=== PATIENT | female | born 1965 | race Caucasian/White ===

== ENCOUNTER 2023-04-21 20:16 | Emergency (ER) | payer OTHER, SELFPAY ==
[2023-04-21 20:18] VITALS: BP 120/78; PULSE 135; RESP 18; TEMP 39.1; O2SAT 92; BMI 23.7
[2023-04-21 20:36] VITALS: BP 137/73; PULSE 81; RESP 18; TEMP 36.8; O2SAT 96; BMI 25.8
== END 2023-04-21 22:40 | disposition left against medical advice (07) ==
LOC: HO.ED 22:31
PROVIDERS: Emergency Provider Emergency Medicine; PCP Student in an Organized Health Care Education/Training Program
DX: R10.9 Unspecified abdominal pain (principal); R50.9 Fever, unspecified
CPT/HCPCS: 99281

== ENCOUNTER 2024-08-27 11:24 | Outpatient (REF) | payer OTHER, SELFPAY ==
--- NOTE | ~2024-08-27 | MM_ITS ---
EXAMINATION: Dual-Energy X-ray Absorptiometry - Bone Density Study HISTORY: Estrogen deficiency TECHNIQUE: Funny [employer] Die Dual energy absorptiometry (DEXA) of the lumbar spine, total left hip, and femoral neck was performed. COMPARISON: There are no prior studies for comparison. FINDINGS: The bone mineral density of the lumbar spine is 1.419 with a T-score of 1.8, and a Z-score of 2.4. The bone mineral density of the left total hip is 0.876 with a T-score of -1.0, and a Z-score of -0.6. The bone mineral density of the left femoral neck is 0.848 with a T-score of -1.4, and a Z-score of -0.5. FRACTURE RISK: The FRAX index suggests a risk of major osteoporotic fracture of 7.3%, and of hip fracture 0.6%. MM/XR DEXA axial skeleton IMPRESSION: Based on bone mineral density, and according to World Health Organization (WHO) criteria, the diagnosis is consistent with osteopenia. All bone density values are in grams per centimeter squared. At this facility, the least significant change in BMD with 95% confidence is 0.022 at the lumbar spine, 0.027 at the hip, and 0.023 at the distal 1/3 radius. Electronically signed by: Jean Benton MD 08/28/2024 09:03 AM [facility] [place]
== END 2024-08-27 11:25 | disposition home or self-care (01) ==
LOC: HO.MAMMO 11:24
PROVIDERS: Visit Provider Student in an Organized Health Care Education/Training Program
DX: M85.89 Other specified disorders of bone density and structure, multiple sites (principal)
CPT/HCPCS: 77080

== ENCOUNTER → 2024-08-27 11:30 | Outpatient (BNV) | payer OTHER, SELFPAY | PROVIDERS: Visit Provider Radiology Diagnostic Radiology | DX: E28.39 Other primary ovarian failure (principal) | CPT/HCPCS: 77080 ==

== ENCOUNTER 2024-12-12 14:14 | Outpatient (REF) | payer BC, SELFPAY ==
[2024-12-12 15:42] LABS: MANUAL DIFF FLAG NO
[2024-12-12 15:52] LABS: Basophils Absolute Auto 0.1 X10*3/uL (0.0-0.2); Basophils Percent Auto 0.9 % (0-2); Eosinophils Absolute Auto 0.1 X10*3/uL (0.0-0.4); Eosinophils Percent Auto 1.7 % (0-4); Hematocrit 40.3 % (37.0-47.0); Hemoglobin 13.4 g/dl (12.0-16.0); Imm Gran Abs Auto 0.02 X10*3/uL (0.00-0.03); Imm Gran Pct Auto 0.3 % (0.0-0.4); Lymphocytes Absolute Auto 2.6 X10*3/uL (1.2-4.9); Lymphocytes Percent Auto 33.6 % (20-40); Mean Corpuscular HGB Conc 33.3 g/dl (31.0-35.0); Mean Corpuscular Hemoglobin 30.5 pg (27.0-33.0); Mean Corpuscular Volume 91.8 fL (80.0-98.0); Mean Platelet Volume 9.3 fL (9.4-12.3); Monocytes Absolute Auto 0.8 X10*3/uL (0.1-1.2); Monocytes Percent Auto 10.1 % (2-11); Neutrophils Absolute Auto 4.1 x10*3/uL (2.0-8.3); Neutrophils Percent Auto 53.4 % (45-73); Platelet Count 367 X10*3/uL (160-400); Red Blood Count 4.39 X10*6/uL (4.20-5.50); Red Cell Distribution Width 13.2 % (11.0-16.0); White Blood Count 7.7 X10*3/uL (4.8-10.8)
[2024-12-12 16:27] LABS: Anion Gap 12 (12-20); Blood Urea Nitrogen 17 mg/dL (9-16); Calcium 10.5 mg/dL (8.4-10.2); Carbon Dioxide 27 mmol/L (22-29); Chloride 104 mmol/L (96-108); Estimated Glomerular Filt Rate > 60; Glucose Random 100 mg/dL (60-115); Potassium 3.8 mmol/L (3.3-5.1); Sodium 139 mmol/L (135-145)
[2024-12-12 17:00] LABS: Erythrocyte Sedimentation Rate 3 MM/HR (0-20)
[2024-12-24 06:18] LABS: Class Alternaria alternata 0; Class Aspergillus fumigatus 0; Class Bermuda Grass 0; Class Birch 0; Class Cat Dander 0/1; Class Cladosporium herbarum 0; Class Cockroach 0; Class Common Ragweed 0; Class Cottonwood 0; Class Derm. pterony 3; Class Dermatophagoides farinae 3; Class Dog Dander 0; Class Elm 0; Class Maple Box Elder 0; Class Mountain Cedar 0; Class Mouse Urine Protein 0; Class Mugwort 0; Class Oak 0; Class Penicillium crysogenum 0; Class Rough Pigweed 0; Class Sheep Sorrel 0; Class Sycamore 0; Class Timothy Grass 0; Class Walnut Tree 0; Class White Ash 0; Class White Mulberry 0; D001 IgE D pteronyssinus 8.54 kU/L; D002 - IgE D farinae 6.83 kU/L; E001 - IgE Cat Dander 0.31 kU/L; E005 - IgE Dog Dander <0.10 kU/L; E072-IgE Mouse Urine <0.10 kU/L; G002 IgE Bermuda Grass <0.10 kU/L; G006 - IgE Timothy Grass <0.10 kU/L; I006-IgE Cockroach, German <0.10 kU/L; Immunoglobulin E 40 kU/L (<OR=114); M001 IgE Penicillium chrysogen <0.10 kU/L; M002 - IgE Cladosporium herbar <0.10 kU/L; M003 - IgE Aspergillus fumigat <0.10 kU/L; M006 - IgE Alternaria alternat <0.10 kU/L; T001 IgE Maple/Box Elder <0.10 kU/L; T003 IgE Common Silver Birch <0.10 kU/L; T006 - IgE Cedar, Mountain <0.10 kU/L; T007 - IgE Oak, White <0.10 kU/L; T008 IgE Elm, American <0.10 kU/L; T010 - IgE Walnut <0.10 kU/L; T011 - IgE Maple Leaf Sycamore <0.10 kU/L; T014 - IgE Cottonwood <0.10 kU/L; T015 - IgE Ash, White <0.10 kU/L; T070 - IgE White Mulberry <0.10 kU/L; W001 - IgE Ragweed, Short <0.10 kU/L; W006 - IgE Mugwort <0.10 kU/L; W014 IgE Pigweed, Common <0.10 kU/L; W018 IgE Sheep Sorrel <0.10 kU/L
[2024-12-27 08:23] LABS: Rast Allergen SEE COMMENTS
== END 2024-12-12 14:15 | disposition home or self-care (01) ==
LOC: HO.LAB 14:14
PROVIDERS: PCP Student in an Organized Health Care Education/Training Program; Referring Provider Student in an Organized Health Care Education/Training Program; Visit Provider Hospitalist
DX: J30.9 Allergic rhinitis, unspecified (principal); R91.1 Solitary pulmonary nodule; T78.40XA Allergy, unspecified, initial encounter
CPT/HCPCS: 36415; 80048; 82785; 85025; 85652; 86003

== ENCOUNTER 2024-12-12 14:14 | Outpatient (AMB) | payer BC, SELFPAY ==
[2024-12-12 14:18] VITALS: BP 108/70; PULSE 67; O2SAT 95; BMI 28.5
--- NOTE | 2024-12-12 14:18 | A.OFFVIS_ITS ---
Vital Signs 12/12/24 14:18 Height 5 ft 10 in Weight 198 lb 6.656 oz BMI 28.5 BP 108/70 Blood Pressure Location Lt brachial Position Sitting Pulse 67 Pulse Source Pulse Oximeter Pulse Oximetry (%) 95 Oxygen Delivery Method Room Air Intake Visit Reasons: asthma Dirt Bike Racer Required: No Accompanied by: Self / Same As Patient Allergies aspirin Allergy (Intermediate, Verified 12/12/24 14:21) Facial Swelling NSAIDS (Non-Steroidal Anti-Inflamma Allergy (Intermediate, Verified 12/12/24 14:21) Facial Swelling HPI Comments Details: The patient is here for pulmonary evaluation. The patient is a 59 year woman with known history of lifelong allergies asthma chronic rhinitis presenting with worsening respiratory symptoms. Apparently as a child she started getting allergy shots at the age of 8. She had a lot of significant environmental allergies at that time. She was living in [place]. Later in her adolescent years she had multiple exacerbation with her asthma requiring hospitalizations and aminophylline along with steroids. Her asthma did improve and then she moved to the [facility]. Here she is now living in the [facility]. She has had increasing allergy symptoms. She had in her rescue inhaler and also had fluticasone for the nose. She is not getting as much relief. Typically she will do better with QNASL although it does not seem to be covered any longer. The patient was switched over to Symbicort and this appears to be more effective for her. She has not required any prednisone recently. She still uses Symbicort regularly since she does have regular symptoms. She has a hard time exercising because of the breathing. She also has significant nasal congestion. The nasal congestion has also resulted in worsening daytime drowsiness and snoring. Her Starbuck score is elevated elevated 24. Her bed partner does complain of her significant apneic episodes and he is concerned that she is going to have a bad outcome. The patient will need to have a sleep study. She has never had a sleep study this point. Therefore, will go ahead and continue her on the Symbicort and will add additional therapies for her nasal congestion. The patient should undergo additional blood work including allergy testing. She will also have formal pulmonary function studies and have her undergo a home sleep study and then she will follow-up after those tests are completed. [facility] Medical History (Updated 12/12/24 @ 21:46 by Shola Mcdowell MD) Chronic allergic rhinitis Allergy Asthma Social History (Updated 12/12/24 @ 14:27 by Loida Cutler CMA) Alcohol intake: current Alcohol intake frequency: holidays/special occasions only Patient Tobacco Use Status: Former Tobacco user Review of Systems Const Reports daytime sleepiness, Denies fatigue, Denies fever(s), Reports snoring and Reports stops breathing during sleep Eyes Reports no additional complaints ENT Reports nasal congestion and Reports nasal discharge Card Denies chest pain Resp Reports cough, Reports snoring and Reports wheezing GI Reports no additional complaints Musc Reports no additional complaints Skin/Breast Denies rash Neuro Reports no additional complaints Endo Denies fatigue Bola/Lymph Reports no additional complaints Aller/Immun Reports wheezing Physical Exam Vital Signs: Last Vital Signs Pulse 67 12/12/24 14:18 BP 108/70 12/12/24 14:18 Pulse Ox 95 12/12/24 14:18 Oxygen Delivery Method Room Air 12/12/24 14:18 BMI result Body Mass Index 28.5 Const General: comfortable HEENT Head: Yes normocephalic Neck Neck: Yes supple Chest Chest palpation & inspection: normal inspection of the chest Resp Effort & Inspection: normal respiratory effort Auscultation: clear to auscultation bilaterally Cardio Heart sounds: S1 normal heart sound present and S2 normal heart sound present GI Palpation (GI): Soft to palpation Skin General skin exam: no rashes or lesions noted Extrem General: Yes no clubbing, cyanosis or edema Assessment & Plan Assessment & Plan (1) Chronic allergic rhinitis: Code(s): J30.9 - Allergic rhinitis, unspecified Category: Medical (2) Allergy: Code(s): T78.40XA - Allergy, unspecified, initial encounter Category: Medical Qualifiers: Encounter type: initial encounter Qualified Code(s): T78.40XA - Allergy, unspecified, initial encounter (3) Asthma: Code(s): J45.909 - Unspecified asthma, uncomplicated Category: Medical Qualifiers: Asthma severity: moderate Asthma persistence: persistent Asthma complication type: uncomplicated Qualified Code(s): J45.40 - Moderate persistent asthma, uncomplicated (4) LIV (obstructive sleep apnea): Code(s): G47.33 - Obstructive sleep apnea (adult) (pediatric) Category: Medical Plan Continue Symbicort JAVON as needed continue Fluticasone nasal spray Add Astelin nasal spray Neti bottle nasal rinse PM PFTs Bloodwork/allergy testing Home PSG F/U 2-3 months Orders: Orders Erythrocyte Sedimentation Rate Today J30.9 - Allergic rhinitis, unspecified, J45.909 - Unspecified asthma, uncomplicated, T78.40XA - Allergy, unspecified, initial encounter Complete Blood Count Auto Diff Today J30.9 - Allergic rhinitis, unspecified, J45.909 - Unspecified asthma, uncomplicated, T78.40XA - Allergy, unspecified, initial encounter Basic Metabolic Panel Today J30.9 - Allergic rhinitis, unspecified, J45.909 - Unspecified asthma, uncomplicated, T78.40XA - Allergy, unspecified, initial encounter Resp Allergy Profile Region I Today J30.9 - Allergic rhinitis, unspecified, J45.909 - Unspecified asthma, uncomplicated, R91.1 - Solitary pulmonary nodule, T78.40XA - Allergy, unspecified, initial encounter Immunoglobulin E Today J30.9 - Allergic rhinitis, unspecified, J45.909 - Unspecified asthma, uncomplicated, T78.40XA - Allergy, unspecified, initial encounter RT home sleep study Today G47.33 - Obstructive sleep apnea (adult) (pediatric) PFT pulmonary function test Today J45.40 - Moderate persistent asthma, uncomp licated Medications: New azelastine administer into each nostril 2 sprays intranasal BID 30 days 30 mL 6RF Coding Level of Care Code New Pt Level 4 (03136) Diagnoses Chronic allergic rhinitis J30.9 Allergy, initial encounter T78.40XA Encounter type: initial encounter Moderate persistent asthma without complication J45.40 Asthma severity: moderate Asthma persistence: persistent Asthma complication type: uncomplicated LIV (obstructive sleep apnea) G47.33 Time Spent (min) 45
--- OUTSIDE RECORDS SUMMARY | 2024-12-12 16:26 | XMS_ITS | Data Portability ---
Author Organization [facility], Main Office Address [address] [facility] [address] [place] [id number] Care Team Providers Care Life Care Planner Name Role Phone ANGIE GUADALUPE Primary Care Provider TL CHOWDHURY Phys. Med. & Rehab Assessment Encounter Date Assessment Date Assessment LastModified by Organization Details LastModified Time 09/05/2024 09/05/2024 Discussed with patient the signs/symptom s warranted for a return to office visit and/or an ER visit. Patient understood and agreed with the plan. [email or web address] Not available 09/05/2024 09:07:13 Plan of Treatment Reminders Order Date Submit Date Provider Last Modified By Organization Details Last Modified Time Details Appointments PE EST 2024 03:00P Alisia GUADALUPE MD Not available Not available Not available Lab rf (rheum atoid factor ), serum 2024 025 KAROLINA [facility] (Centralized Electronic Ordering - All Locations), Patient Can Go To The Location Of Their Choice, 09/06/2024 20:06:19 TAWANA (antin uclear antibo dies) screen , serum 2024 025 KAROLINA [facility] (Centralized Electronic Ordering - All Locations), Patient Can Go To The Location Of Their Choice, 09/06/2024 20:06:22 ccp (cycli c citrul linate d peptid e) iga+ig g, serum 2024 025 KAROLINA [facility] (Centralized Electronic Ordering - All Locations), Patient Can Go To The Location Of Their Choice, [id number] 09/06/2024 20:06:21 vitami n D, 25-hyd melissa, total, serum 2024 025 KAROLINA [facility] (Centralized Electronic Ordering - All Locations), Patient Can Go To The Location Of Their Choice, 09/06/2024 20:06:20 HbA1c (hemog lobin A1c), blood 2023 024 KAROLINA [facility] (Centralized Electronic Ordering - All Locations), Patient Can Go To The Location Of Their Choice, 10/03/2024 08:07:59 lipid panel, serum 2023 024 [email or web address] [facility], [address], [place], [address], 10/01/2024 09:47:41 BMP, serum or plasma 2023 024 KAROLINA [facility], [address], [place], [address], 10/03/2024 08:07:58 CBC w/ auto diff 2023 024 KAROLINA [facility], [address], [place], [address], 10/03/2024 08:07:57 TSH, ultra- sensit janie, serum 2023 024 [email or web address] [facility], [address], [place], [address], 10/01/2024 09:47:41 urinal ysis comple te, reflex cultur e 2023 024 KAROLINA [facility] (Centralized Electronic Ordering - All Locations), Patient Can Go To The Location Of Their Choice, 02/02/2024 12:07:08 CBC w/ auto diff 2023 024 KAROLINA [facility], [address], [place], [address], 02/02/2024 12:07:07 TSH, ultra- sensit janie, serum 2023 024 KAROLINA [facility], [address], [place], [address], 02/02/2024 12:07:12 HIV 1 + 2, meanin gful use set 2023 024 KAROLINA [facility] (Centralized Electronic Ordering - All Locations), Patient Can Go To The Location Of Their Choice, [id number] 02/02/2024 12:07:11 BMP, serum or plasma 2023 024 KAROLINA [facility] (Centralized Electronic Ordering - All Locations), Patient Can Go To The Location Of Their Choice, [id number] 02/02/2024 12:07:09 ALT (dianna carreon), serum or plasma 2023 024 KAROLINA [facility] (Centralized Electronic Ordering - All Locations), Patient Can Go To The Location Of Their Choice, [id number] 02/02/2024 12:07:13 lipid panel, serum 2023 024 KAROLINA [facility] (Centralized Electronic Ordering - All Locations), Patient Can Go To The Location Of Their Choice, [id number] 02/02/2024 12:07:10 HbA1c (hemog lobin A1c), blood 2023 024 KAROLINA [facility] (Centralized Electronic Ordering - All Locations), Patient Can Go To The Location Of Their Choice, [id number] 02/02/2024 12:07:11 Hepati tis C IgG Ab, qual, serum 2023 024 KAROLINA [facility] (Centralized Electronic Ordering - All Locations), Patient Can Go To The Location Of Their Choice, [id number] 02/02/2024 12:07:10 hepati tis C virus Ab, serum 2022 023 [facility], [address], [address], 11/04/2022 09:13:36 Referral pulmon ologis t referr al - hx of asthma . pt reques ts to see pulmon ologis t to follow asthma 2024 025 JUANITO [facility], [address] [place], [address], 09/05/2024 14:40:36 gyneco logist referr al 2023 024 Not available 07/01/2024 11:33:10 urolog ist referr al 2023 024 [email or web address] [facility], [address] [facility], [place], [address], 07/25/2024 14:24:37 gyneco logist referr al 2023 024 [email or web address] Not available 07/25/2024 14:24:37 dermat ologis t referr al 2023 024 dionne Coto MD, [address] [facility] , [place], [address], 07/25/2024 14:24:38 physic al medici ne and rehabi litati on referr al 2022 023 [email or web address] Tl Chowdhury DO, [address] [facility], [address], [place], [address], 11/21/2022 11:03:57 gyneco logist referr al 2022 023 Not available 05/04/2023 10:21:05 Procedures colono scopy screen ing (PROC) 2023 024 [email or web address] [facility], [address], [place], [address], 02/22/2024 08:30:46 colono scopy screen ing (PROC) 2022 023 [facility], [address], [place], [address], 01/05/2023 11:11:07 Surgeries None record ed. Imaging bone densit y 2023 024 KAROLINA Not available 08/28/2024 09:08:44 XR, thorac ic spine, 2 view 2023 024 KAROLINA Not available 01/23/2024 11:39:27 MAMMO, diagno stic, unilat eral - left breast RUQ at 9 oclock 2023 024 [email or web address] Not available 02/06/2024 08:59:18 US, breast , unilat eral - left breast RUQ at 9 oclock 2023 024 matilda [facility], [address], [address], [place], [address], 01/25/2024 08:47:42 XR, ribs, unilat eral, w/ PA chest - RIGHT SIDE 2022 023 [place] [facility], [address], [address], [place], [address], 05/02/2023 05:34:20 MAMMO, screen ing, bilate ral 2022 023 Not available 05/04/2023 10:21:18 Medication Orders Symbic ort 160 mcg-4. 5 mcg/ac tuatio n HFA aeroso l inhale r 2024 025 [id number], [address] [place], [address], 09/05/2024 09:19:32 predni sone 20 mg tablet 2024 025 [id number], [address] [place], [address], 09/05/2024 09:19:32 albute rol sulfat e HFA 90 mcg/ac tuatio n aeroso l inhale r 2023 024 [id number], [address] [place], [address], 07/01/2024 11:33:11 gerson ukast 10 mg tablet 2023 024 [id number], [address] [place], [address], 07/01/2024 11:33:11 Floven t HFA 220 mcg/ac tuatio n aeroso l inhale r 2023 024 [id number], [address] [place], [address], 07/01/2024 11:33:11 amlodi pine 5 mg tablet 2023 024 [id number], [address] [place], [address], 07/01/2024 11:23:28 gabape ntin 300 mg capsul e 2022 023 juan [id number], [address] [place], [address], 01/23/2024 09:46:50 Patient TargetsNo targets recorded. Patient Instructions Encounter Date Encounter Id Patient Instructions Last Modified By Organization Details Last Modified Time 01/23/2024 [id number] alergias: instrucciones de cuidado - [allergies: care instructions] Not available 01/23/2024 10:10:02 aprenda sobre el alivio del dolor de espalda - [learning about relief for back pain] Not available 01/23/2024 10:10:02 cuidado de la espalda y prevenci? ? ?n de lesiones: instrucciones de cuidado - [back care and preventing injuries: care instructions] Not available 01/23/2024 10:10:02 C? ? ?MO volver a la normalidad despu? ? ?s de un dolor en la parte baja de la espalda: instrucciones de cuidado - [getting back to normal after low back pain: care instructions] Not available 01/23/2024 10:10:02 parte superior d e la espalda saludable: ejercicios - [healthy upper back: exercises] Not available 01/23/2024 10:10:44 aprenda sobre lo s trastornos del estado de ? ? ?patience - [learning about mood disorders] Not available 01/23/2024 10:10:03 prueba de vih: instrucciones de cuidado - [HIV testing: care instructions] Not available 01/23/2024 10:13:21 colesterol alto: instrucciones de cuidado - [high cholesterol: care instructions] Not available 01/23/2024 10:10:01 prediabetes: instrucciones de cuidado - [prediabetes: care instructions] Not available 01/23/2024 10:10:02 lesiones cut? ? ?neas: instrucciones de cuidado - [skin lesions: care instructions] Not available 01/23/2024 10:10:02 07/01/2024 [id number] low back pain: exercises Not available 07/01/2024 11:33:10 Reason for Referral Metal Or Wood Blocker Referral for Sc reening for malignant neoplasm of cervix Referring Physician: Angie Guadalupe [facility] Kishore, Encounter Date: 11/04/2022 Physical Medicine And Rehabi litation Referral for Low back pain Referring Physician: Angie Guadalupe [facility] Kish[facility], Encounter Date: 11/04/2022 Metal Or Wood Blocker Referral for Sc reening for malignant neoplasm of cervix Referring Physician: Family Kishore Duenas, Encounter Date: 01/23/2024 Urologist Referral for Histo ry of urinary tract infection Referring Physician: Angie Guadalupe [facility]ish[facility], Encounter Date: 01/23/2024 Plastic Surgery Nurse Referral for S kin lesion Referring Physician: Family Kishore Duenas, Encounter Date: 01/23/2024 Metal Or Wood Blocker Referral for Sc reening for malignant neoplasm of cervix Referring Physician: Angie Guadalupe, [facility], Encounter Date: 07/01/2024 Packaging Line Attendant Referral for E xacerbation of mild persistent asthma hx of asthma. pt requests to see drafter heating and ventilating to follow asthma Referring Physician: Swathi Ferrer, [facility], Encounter Date: 09/05/2024 Results Created Date Observation Date Name Description Value Unit Range Abnormal Flag Note LastModifiedBy Organization Detail LastModifiedTime 01/30/20 24 01/31/2024 CBC WITH DIFFE RENTI AL/PL ATELE T WBC 6.2 x10e3 /uL 3.4-10 .8 Not Available [facility] ([facility]) [address] [facility], [place], [address], 02/02/2024 12:07:07 01/30/20 24 01/31/2024 CBC WITH DIFFE RENTI AL/PL ATELE T RBC 4.33 x10e6 /uL 3.77-5 .28 Not Available [facility] ([facility]) [address] [place], [address], 02/02/2024 12:07:07 01/30/20 24 01/31/2024 CBC WITH DIFFE RENTI AL/PL ATELE T hemoglobin 13.1 g/dL 11.1-1 5.9 Not Available [facility] ([facility]) [address] [facility], [place], [address], 02/02/2024 12:07:07 01/30/20 24 01/31/2024 CBC WITH DIFFE RENTI AL/PL ATELE T hematocrit 41.2 % 34.0-4 6.6 Not Available [facility] ([facility]) [address] [place], [address], 02/02/2024 12:07:07 01/30/20 24 01/31/2024 CBC WITH DIFFE RENTI AL/PL ATELE T MCV 95 fL 79-97 Not Available [facility] ([facility]) [address] [facility], [place], [address], 02/02/2024 12:07:07 01/30/20 24 01/31/2024 CBC WITH DIFFE RENTI AL/PL ATELE T MCH 30.3 pg 26.6-3 3.0 Not Available [facility] ([facility]) [address] [facility], [place], [address], 02/02/2024 12:07:07 01/30/20 24 01/31/2024 CBC WITH DIFFE RENTI AL/PL ATELE T MCHC 31.8 g/dL 31.5-3 5.7 Not Available [facility] ([facility]) [address] [facility], [place], [address], 02/02/2024 12:07:07 01/30/20 24 01/31/2024 CBC WITH DIFFE RENTI AL/PL ATELE T RDW 13.9 % 11.7-1 5.4 Not Available [facility] ([facility]) [address] [facility], [place], [address], 02/02/2024 12:07:07 01/30/20 24 01/31/2024 CBC WITH DIFFE RENTI AL/PL ATELE T platelets 392 x10e3 /uL 150-45 0 Not Available [facility] ([facility]) [address] [place], [address], 02/02/2024 12:07:07 01/30/20 24 01/31/2024 CBC WITH DIFFE RENTI AL/PL ATELE T neutrophils 50 % not estab. Not Available [facility] ([facility]) [address] [place], [address], 02/02/2024 12:07:07 01/30/20 24 01/31/2024 CBC WITH DIFFE RENTI AL/PL ATELE T lymphs 35 % not estab. Not Available [facility] ([facility]) [address] [place], [address], 02/02/2024 12:07:07 01/30/20 24 01/31/2024 CBC WITH DIFFE RENTI AL/PL ATELE T monocytes 10 % not estab. Not Available [facility] ([facility]) [address] [facility], [place], [address], 02/02/2024 12:07:07 01/30/20 24 01/31/2024 CBC WITH DIFFE RENTI AL/PL ATELE T eos 3 % not estab. Not Available [facility] ([facility]) [address] [facility], [place], [address], 02/02/2024 12:07:07 01/30/20 24 01/31/2024 CBC WITH DIFFE RENTI AL/PL ATELE T basos 1 % not estab. Not Available [facility] ([facility]) [address] [facility], [place], [address], 02/02/2024 12:07:07 01/30/20 24 01/31/2024 CBC WITH DIFFE RENTI AL/PL ATELE T immature cells SECRETARY TO [employer]ERS Not Available [facility] ([facility]) [address] [place], [address], 02/02/2024 12:07:07 01/30/20 24 01/31/2024 CBC WITH DIFFE RENTI AL/PL ATELE T neutrophils (absolute) 3.2 x10e3 /uL 1.4-7. 0 Not Available [facility] ([facility]) [address] [place], [address], 02/02/2024 12:07:07 01/30/20 24 01/31/2024 CBC WITH DIFFE RENTI AL/PL ATELE T lymphs (absolute) 2.2 x10e3 /uL 0.7-3. 1 Not Available [facility] ([facility]) [address] [place], [address], 02/02/2024 12:07:07 01/30/20 24 01/31/2024 CBC WITH DIFFE RENTI AL/PL ATELE T monocytes(ab solute) 0.6 x10e3 /uL 0.1-0. 9 Not Available [facility] ([facility]) [address] [facility], [place], [address], 02/02/2024 12:07:07 01/30/20 24 01/31/2024 CBC WITH DIFFE RENTI AL/PL ATELE T eos (absolute) 0.2 x10e3 /uL 0.0-0. 4 Not Available [facility] ([facility]) [address] [facility], [place], [address], 02/02/2024 12:07:07 01/30/20 24 01/31/2024 CBC WITH DIFFE RENTI AL/PL ATELE T baso (absolute) 0.1 x10e3 /uL 0.0-0. 2 Not Available [facility] ([facility]) [address] [facility], [place], [address], 02/02/2024 12:07:07 01/30/20 24 01/31/2024 CBC WITH DIFFE RENTI AL/PL ATELE T immature granulocytes 1 % not estab. Not Available [facility] ([facility]) [address] [facility], [place], [address], 02/02/2024 12:07:07 01/30/20 24 01/31/2024 CBC WITH DIFFE RENTI AL/PL ATELE T immature grans (abs) 0.1 x10e3 /uL 0.0-0. 1 Not Available [facility] ([facility]) [address] [place], [address], 02/02/2024 12:07:07 01/30/20 24 01/31/2024 CBC WITH DIFFE RENTI AL/PL ATELE T NRBC SECRETARY TO [employer]ERS Not Available [facility] ([facility]) [address] [place], [address], 02/02/2024 12:07:07 01/30/20 24 01/31/2024 CBC WITH RONIE CHEMO AL/KARRIE Leach hematology comments: SECRETARY TO [employer]ISS[employer]ERS Not Available [facility] ([facility]) [address] [facility], [place], [address], 02/02/2024 12:07:07 01/30/20 24 01/31/2024 UA/M W/RFL X CULTU RE ROUTI NE specific gravity 1.023 1.005- 1.030 Not Available [facility] ([facility]) [address] [facility], [place], [address], 02/02/2024 12:07:08 01/30/20 24 01/31/2024 UA/M W/RFL X CULTU REDARYN NE pH 7.5 5.0-7. 5 Not Available [facility] ([facility]) [address] [facility], [place], [address], 02/02/2024 12:07:08 01/30/20 24 01/31/2024 UA/M W/RFL X CULTU REDARYN NE urine-color Yellow yellow Not Available [facility] ([facility]) [address] [facility], [place], [address], 02/02/2024 12:07:08 01/30/20 24 01/31/2024 UA/M W/RFL X CULTTati REDARYN NE appearance Clear clear Not Available [facility] ([facility]) [address] [facility], [place], [address], 02/02/2024 12:07:08 01/30/20 24 01/31/2024 UA/M W/RFL X CULTU REDARYN NE WBC esterase Negati ve negati ve Not Available [facility] ([facility]) [address] [facility], [place], [address], 02/02/2024 12:07:08 01/30/20 24 01/31/2024 UA/M W/RFL X CULTU RE, ROUTI NE protein Trace negati ve/tra ce Not Available [facility] ([facility]) [address] [place], [address], 02/02/2024 12:07:08 01/30/20 24 01/31/2024 UA/M W/RFL X CULTU RE, ROUTI NE glucose Negati ve negati ve Not Available [facility] ([facility]) [address] [place], [address], 02/02/2024 12:07:08 01/30/20 24 01/31/2024 UA/M W/RFL X CULTU RE, ROUTI NE ketones Negati ve negati ve Not Available [facility] ([facility]) [address] [place], [address], 02/02/2024 12:07:08 01/30/20 24 01/31/2024 UA/M W/RFL X CULTU RE, ROUTI NE occult blood Negati ve negati ve Not Available [facility] ([facility]) [address] [place], [address], 02/02/2024 12:07:08 01/30/20 24 01/31/2024 UA/M W/RFL X CULTU RE, ROUTI NE bilirubin Negati ve negati ve Not Available [facility] ([facility]) [address] [place], [address], 02/02/2024 12:07:08 01/30/20 24 01/31/2024 UA/M W/RFL X CULTU RE, ROUTI NE urobilinogen ,semi-qn 0.2 mg/dL 0.2-1. 0 Not Available [facility] ([facility]) [address] [place], [address], 02/02/2024 12:07:08 01/30/20 24 01/31/2024 UA/M W/RFL X CULTU RE, ROUTI NE nitrite, urine Positi ve negati ve abnormal Not Available [facility] ([facility]) [address] [facility], [place], [address], 02/02/2024 12:07:08 01/30/20 24 01/31/2024 UA/M W/RFL X CULTU RE, ROUTI NE microscopic examination See below: Porsche pulliam was indic ated and was perfo rmed. Not Available [facility] ([facility]) [address] [facility], [place], [address], 02/02/2024 12:07:08 01/30/20 24 01/31/2024 UA/M W/RFL X CULTU RE, ROUTI NE WBC 0-5 /hpf 0 - 5 Not Available [facility] ([facility]) [address] [facility], [place], [address], 02/02/2024 12:07:08 01/30/20 24 01/31/2024 UA/M W/RFL X CULTU RE, ROUTI NE RBC 0-2 /hpf 0 - 2 Not Available [facility] ([facility]) [address] [facility], [place], [address], 02/02/2024 12:07:08 01/30/20 24 01/31/2024 UA/M W/RFL X CULTU RE, ROUTI NE epithelial cells (non renal) 0-10 /hpf 0 - 10 Not Available [facility] ([facility]) [address] [facility], [place], [address], 02/02/2024 12:07:08 01/30/20 24 01/31/2024 UA/M W/RFL X CULTU RE, ROUTI NE epithelial cells (renal) SECRETARY TO [employer] COMMISS[employer]ERS Not Available [facility] ([facility]) [address] [place], [address], 02/02/2024 12:07:08 01/30/20 24 01/31/2024 UA/M W/RFL X CULTU RE, ROUTI NE casts None seen /lpf none seen Not Available [facility] ([facility]) [address] [facility], [place], [address], 02/02/2024 12:07:08 01/30/20 24 01/31/2024 UA/M W/RFL X CULTU RE, ROUTI NE cast type SECRETARY TO [employer]ERS Not Available [facility] ([facility]) [address] [facility], [place], [address], 02/02/2024 12:07:08 01/30/20 24 01/31/2024 UA/M W/RFL X CULTU RE, ROUTI NE crystals SECRETARY TO [employer] COMMISSIONERS Not Available [facility] ([facility]) [address] [facility], [place], [address], 02/02/2024 12:07:08 01/30/20 24 01/31/2024 UA/M W/RFL X CULTU RE, ROUTI NE crystal type SECRETARY TO BOARD OF COMMISSIONERS Not Available [facility]) [address] [facility], [place], [address], 02/02/2024 12:07:08 01/30/20 24 01/31/2024 UA/M W/RFL X CULTU RE, ROUTI NE mucus threads SECRETARY TO [employer] COMMISSIONERS Not Available [facility] ([facility]) [address] [facility], [place], [address], 02/02/2024 12:07:08 01/30/20 24 01/31/2024 UA/M W/RFL X CULTU RE, ROUTI NE bacteria Few none seen/f ew Not Available [facility] ([facility]) [address] [facility], [place], [address], 02/02/2024 12:07:08 01/30/20 24 01/31/2024 UA/M W/RFL X CULTU RE, ROUTI NE yeast SECRETARY TO [employer]ARD [employer] COMMISSIONERS Not Available [facility] ([facility]) [address] [facility], [place], [address], 02/02/2024 12:07:08 01/30/20 24 01/31/2024 UA/M W/RFL X CULTU RE, ROUTI NE trichomonas SECRETARY TO [employer] COMMISSIONERS Not Available [facility] ([facility]) [address] [facility], [place], [address], 02/02/2024 12:07:08 01/30/20 24 01/31/2024 UA/M W/RFL X CULTU RE, ROUTI NE comment SECRETARY TO BOARD [employer] COMMISSIONERS Not Available [facility] ([facility]) [address] [facility], [place], [address], 02/02/2024 12:07:08 01/30/20 24 01/31/2024 UA/M W/RFL X CULTU RE, ROUTI NE microscopic examination SECRETARY TO [employer]ISSIONERS Not Available [facility]) [address] [facility], [place], [address], 02/02/2024 12:07:08 01/30/20 24 01/31/2024 UA/M W/RFL X CULTU RE, ROUTI NE urinalysis reflex Commen t This speci men has refle xed to a Urine Cultu re. Not Available [facility] ([facility]) [address] [facility], [place], [address], 02/02/2024 12:07:08 01/30/20 24 02/02/2024 UA/M W/RFL X CULTU RE, ROUTI NE urine culture, routine Final report abnormal Not Available [facility] ([facility]) [address] [facility], [place], [address], 02/02/2024 12:07:08 01/30/20 24 02/02/2024 UA/M W/RFL X CULTU RE, ROUTI NE result 1 Klebsi kayden pneumo niae abnormal Great er than 100,0 00 colon y formi ng units per mL Cefaz gomez <=4 ug/mL Cefaz gomez with an REUBEN <=16 predi cts susce ptibi lity to the oral agent s cefac rebecca, cefdi trinidad, cefpo doxim e, cefpr ozil, cefur oxime , cepha lexin , and lorac arbef when used for thera py of uncom plica peggy urina ry tract infec tions due to E. coli, Klebs iella pneum oniae , and Prote us mirab ilis. Not Available [facility] ([facility]) [address] [place], [address], 02/02/2024 12:07:08 01/30/20 24 02/02/2024 UA/M W/RFL X CULTU RE, ROUTI NE antimicrobia l susceptibili ty Commen t S = Susce ptibl e; I = Inter media te; R = Resis tant P = Posit janie; N = Negat janie MICS are expre ssed in micro grams per mL Antib iotic RSLT# 1 RSLT# 2 RSLT# 3 RSLT# 4 Amoxi cilli n/Cla vulan ic Acid S Ampic illin R Cefep aminata S Ceftr iaxon e S Cefur oxime S Cipro floxa candi S Ertap enem S Genta micin S Imipe nem S Levof loxac in S Merop enem S Nitro furan toin R Piper acill in/Ta zobac mcdermott S Tetra cycli ne S Tobra mycin S Trime thopr im/Valerio lfa S Not Available [facility] ([facility]) [address] [place], [address], 02/02/2024 12:07:08 01/30/20 24 01/31/2024 BASIC METAB OLIC PANEL (8) glucose 96 mg/dL 70-99 Not Available [facility] ([facility]) [address] [place], [address], 02/02/2024 12:07:09 01/30/20 24 01/31/2024 BASIC METAB OLIC PANEL (8) BUN 18 mg/dL 6-24 Not Available [facility] ([facility]) [address] [place], [address], 02/02/2024 12:07:09 01/30/20 24 01/31/2024 BASIC METAB OLIC PANEL (8) creatinine 0.71 mg/dL 0.57-1 .00 Not Available [facility] ([facility]) [address] [place], [address], 02/02/2024 12:07:09 01/30/20 24 01/31/2024 BASIC METAB OLIC PANEL (8) eGFR 98 mL/mi n/1.7 3 >59 Not Available [facility] ([facility]) [address] [place], [address], 02/02/2024 12:07:09 01/30/20 24 01/31/2024 BASIC METAB OLIC PANEL (8) BUN/creatini ne ratio 25 9-23 above high normal Not Available [facility] ([facility]) [address] [facility] [place], [address], 02/02/2024 12:07:09 01/30/20 24 01/31/2024 BASIC METAB OLIC PANEL (8) sodium 138 mmol/ L 134-14 4 Not Available [facility] ([facility]) [address] [place] [place], [address], 02/02/2024 12:07:09 01/30/20 24 01/31/2024 BASIC METAB OLIC PANEL (8) potassium 4.2 mmol/ L 3.5-5. 2 Not Available [facility] ([facility]) [address] [place] [place], [address], 02/02/2024 12:07:09 01/30/20 24 01/31/2024 BASIC METAB OLIC PANEL (8) chloride 101 mmol/ L 96-106 Not Available [facility] ([facility]) [address] [place] [place], [address], 02/02/2024 12:07:09 01/30/20 24 01/31/2024 BASIC METAB OLIC PANEL (8) carbon dioxide, total 22 mmol/ L 20-29 Not Available [facility] ([facility]) [address] [facility] [place], [address], 02/02/2024 12:07:09 01/30/20 24 01/31/2024 BASIC METAB OLIC PANEL (8) calcium 9.9 mg/dL 8.7-10 .2 Not Available [facility] ([facility]) [address] [facility] [place], [address], 02/02/2024 12:07:09 01/30/20 24 01/31/2024 LIPID PANEL cholesterol, total 247 mg/dL 100-19 9 above high normal Not Available [facility] ([facility]) [address] [facility] [place], [address], 02/02/2024 12:07:10 01/30/20 24 01/31/2024 LIPID PANEL triglyceride s 172 mg/dL 0-149 above high normal Not Available [facility] ([facility]) [address] [place], [address], 02/02/2024 12:07:10 01/30/20 24 01/31/2024 LIPID PANEL HDL cholesterol 64 mg/dL >39 Not Available [facility]) [address] [place], [address], 02/02/2024 12:07:10 01/30/20 24 01/31/2024 LIPID PANEL VLDL cholesterol isrrael 31 mg/dL 5-40 Not Available [facility] ([facility]) [address] [place], [address], 02/02/2024 12:07:10 01/30/20 24 01/31/2024 LIPID PANEL LDL chol calc ([facility]) 152 mg/dL 0-99 above high normal Not Available [facility] ([facility]) [address] [place], [address], 02/02/2024 12:07:10 01/30/20 24 01/31/2024 LIPID PANEL LDL calc comment: SECRETARY TO BOARD OF COMMISSIONERS Not Available [facility] ([facility]) [address] [facility], [place], [address], 02/02/2024 12:07:10 01/30/20 24 01/31/2024 HCV ANTIB MUMTAZ RFX TO QUANT PCR HCV Ab Non Reacti ve non reacti ve Not Available [facility] ([facility]) [address] [facility], [place], [address], 02/02/2024 12:07:10 01/30/20 24 01/31/2024 HCV ANTIB MUMTAZ RFX TO QUANT PCR interpretati on: Commen t Not infec peggy with HCV unles s early or acute infec tion is suspe cted (whic h may be delay ed in an immun ocomp romis ed indiv idual ), or other evide nce exist s to indic ate HCV infec tion. Not Available [facility] ([facility]) [address] [facility], [place], [address], 02/02/2024 12:07:10 01/30/20 24 01/31/2024 HEMOG LOBIN A1C hemoglobin A1C 5.7 % 4.8-5. 6 above high normal Predi abete s: 5.7 - 6.4 Diabe joceline: >6.4 Glyce reuben contr ol for adult s with diabe joceline: <7.0 Not Available [facility] ([facility]) [address] [facility], [place], [address], 02/02/2024 12:07:11 01/30/20 24 01/31/2024 HIV AB/P2 4 AG WITH REFLE X HIV Ab/P24 Ag screen Non Reacti ve non reacti ve HIV-1 /HIV- 2 antib odies and HIV-1 p24 antig en were NOT detec peggy. There is no labor atory evide nce of HIV infec tion. HIV Negat janie Not Available [facility] ([facility]) [address] [facility], [place], [address], 02/02/2024 12:07:11 01/30/20 24 01/31/2024 TSH RFX ON ABNOR MAL TO FREE T4 TSH 2.160 uIU/m L 0.450- 4.500 Not Available [facility] ([facility]) [address] [facility], [place], [address], 02/02/2024 12:07:12 01/30/20 24 01/31/2024 ALT (SGPT ) ALT (SGPT) 32 IU/L 0-32 Not Available [facility] ([facility]) [address] [facility], [place], [address], 02/02/2024 12:07:13 09/05/19 25 09/06/2024 RHEUM ATOID FACTO R (RF) rheumatoid factor (rf) 13.6 IU/mL <14.0 normal Not Available [facility] ([facility]) [address] [facility], [place], [address], 09/06/2024 20:06:19 09/05/19 25 09/06/2024 VITAM IN D, 25-HY DROXY vitamin D, 25-hydroxy 24.4 NG/mL 30.0-1 00.0 below low normal Vitam in D defic iency has been defin ed by the Insti tute of Medic ine and an Endoc rine Socie ty pract ice guide line as a level of serum 25-OH vitam in D less than 20 ng/mL (1,2) . The Endoc rine Socie ty went on to furth er defin e vitam in D insuf ficie ncy as a level betwe en 21 and 29 ng/mL (2). 1. IOM (Inst itute of Medic ine). 2010. Dieta ry refer ence intak es for calci um and D. Christina ontiveros [place]: The Natio [facility] Acade [facility] Press . 2. Obi zaldivar MF, Karissa toure [place], Jasper off-F errar i ALAN, et al. Evalu ation , treat ment, and preve ntion of vitam in D defic iency : an Endoc rine Socie ty clini isrrael pract ice guide line. JCEM. 2010; 96(7) :1911 -30. Not Available [facility] ([facility]) [address] [facility], [place], [address], 09/06/2024 20:06:20 09/05/19 25 09/06/2024 ANTI- CCP AB, IGG/I GA anti-ccp Ab, IgG/IgA 2 units 0-19 Negat janie <20 Weak posit janie 20 - 39 Moder ate posit janie 40 - 59 Stron g posit janie >59 Not Available [facility] ([facility]) [address] [facility], [place], [address], 09/06/2024 20:06:21 09/05/19 25 09/06/2024 ANTIN UCLEA R AB MULTI PLEX RFX 9 TAWANA direct Negati ve negati ve Not Available [facility] ([facility]) [address] [facility], [place], [address], 09/06/2024 20:06:21 10/02/19 25 10/03/2024 CBC WITH DIFFE RENTI AL/PL ATELE T WBC 7.2 x10e3 /uL 3.4-10 .8 normal Not Available [facility] ([facility]) [address] [place], [address], 10/03/2024 08:07:57 10/02/19 25 10/03/2024 CBC WITH DIFFE RENTI AL/PL ATELE T RBC 4.61 x10e6 /uL 3.77-5 .28 normal Not Available [facility] ([facility]) [address] [place], [address], 10/03/2024 08:07:57 10/02/19 25 10/03/2024 CBC WITH DIFFE RENTI AL/PL ATELE T hemoglobin 14.0 g/dL 11.1-1 5.9 normal Not Available [facility] ([facility]) [address] [facility], [place], [address], 10/03/2024 08:07:57 10/02/19 25 10/03/2024 CBC WITH DIFFE RENTI AL/PL ATELE T hematocrit 43.8 % 34.0-4 6.6 normal Not Available [facility] ([facility]) [address] [facility], [place], [address], 10/03/2024 08:07:57 10/02/19 25 10/03/2024 CBC WITH DIFFE RENTI AL/PL ATELE T MCV 95 fL 79-97 normal Not Available [facility] ([facility]) [address] [facility], [place], [address], 10/03/2024 08:07:57 10/02/19 25 10/03/2024 CBC WITH DIFFE RENTI AL/PL ATELE T MCH 30.4 pg 26.6-3 3.0 normal Not Available [facility] ([facility]) [address] [facility], [place], [address], 10/03/2024 08:07:57 10/02/19 25 10/03/2024 CBC WITH DIFFE RENTI AL/PL ATELE T MCHC 32.0 g/dL 31.5-3 5.7 normal Not Available [facility] ([facility]) [address] [facility], [place], [address], 10/03/2024 08:07:57 10/02/19 25 10/03/2024 CBC WITH DIFFE RENTI AL/PL ATELE T RDW 14.9 % 11.7-1 5.4 Not Available [facility] ([facility]) [address] [place], [address], 10/03/2024 08:07:57 10/02/19 25 10/03/2024 CBC WITH DIFFE RENTI AL/PL ATELE T platelets 374 x10e3 /uL 150-45 0 normal Not Available [facility] ([facility]) [address] [facility], [place], [address], 10/03/2024 08:07:57 10/02/19 25 10/03/2024 CBC WITH DIFFE RENTI AL/PL ATELE T neutrophils 48 % not estab. normal Not Available [facility] ([facility]) [address] [facility], [place], [address], 10/03/2024 08:07:57 10/02/19 25 10/03/2024 CBC WITH DIFFE RENTI AL/PL ATELE T lymphs 38 % not estab. normal Not Available [facility] ([facility]) [address] [facility], [place], [address], 10/03/2024 08:07:57 10/02/19 25 10/03/2024 CBC WITH DIFFE RENTI AL/PL ATELE T monocytes 10 % not estab. normal Not Available [facility] ([facility]) [address] [facility], [place], [address], 10/03/2024 08:07:57 10/02/19 25 10/03/2024 CBC WITH DIFFE RENTI AL/PL ATELE T eos 2 % not estab. normal Not Available [facility] ([facility]) [address] [facility], [place], [address], 10/03/2024 08:07:57 10/02/19 25 10/03/2024 CBC WITH DIFFE RENTI AL/PL ATELE T basos 1 % not estab. normal Not Available [facility] ([facility]) [address] [facility], [place], [address], 10/03/2024 08:07:57 10/02/19 25 10/03/2024 CBC WITH DIFFE RENTI AL/PL ATELE T immature cells SECRETARY TO BOARD [employer] COMMISSIONERS Not Available [facility] ([facility]) [address] [place], [address], 10/03/2024 08:07:57 10/02/19 25 10/03/2024 CBC WITH DIFFE RENTI AL/PL ATELE T neutrophils (absolute) 3.5 x10e3 /uL 1.4-7. 0 normal Not Available [facility] ([facility]) [address] [place], [address], 10/03/2024 08:07:57 10/02/19 25 10/03/2024 CBC WITH DIFFE RENTI AL/PL ATELE T lymphs (absolute) 2.7 x10e3 /uL 0.7-3. 1 normal Not Available [facility] ([facility]) [address] [place], [address], 10/03/2024 08:07:57 10/02/19 25 10/03/2024 CBC WITH DIFFE RENTI AL/PL ATELE T monocytes(ab solute) 0.7 x10e3 /uL 0.1-0. 9 normal Not Available [facility] ([facility]) [address] [place], [address], 10/03/2024 08:07:57 10/02/19 25 10/03/2024 CBC WITH DIFFE RENTI AL/PL ATELE T eos (absolute) 0.2 x10e3 /uL 0.0-0. 4 normal Not Available [facility] ([facility]) [address] [place], [address], 10/03/2024 08:07:57 10/02/19 25 10/03/2024 CBC WITH DIFFE RENTI AL/PL ATELE T baso (absolute) 0.1 x10e3 /uL 0.0-0. 2 normal Not Available [facility] ([facility]) [address] [place], [address], 10/03/2024 08:07:57 10/02/19 25 10/03/2024 CBC WITH DIFFE RENTI AL/PL ATELE T immature granulocytes 1 % not estab. Not Available [facility] ([facility]) [address] [place], [address], 10/03/2024 08:07:57 10/02/19 25 10/03/2024 CBC WITH DIFFE RENTI AL/PL ATELE T immature grans (abs) 0.0 x10e3 /uL 0.0-0. 1 Not Available [facility] ([facility]) [address] [facility], [place], [address], 10/03/2024 08:07:57 10/02/19 25 10/03/2024 CBC WITH DIFFE RENTI AL/PL ATELE T NRBC SECRETARY TO [employer] COMMISSIONERS Not Available [facility] ([facility]) [address] [facility], [place], [address], 10/03/2024 08:07:57 10/02/19 25 10/03/2024 CBC WITH DIFFE RENTI AL/PL ATELE T hematology comments: SECRETARY TO BOARD OF COMMISSIONERS Not Available [facility] ([facility]) [address] [facility], [place], [address], 10/03/2024 08:07:57 10/02/19 25 10/03/2024 BASIC METAB OLIC PANEL (8) glucose 113 mg/dL 70-99 above high normal Not Available [facility] ([facility]) [address] [facility], [place], [address], 10/03/2024 08:07:58 10/02/19 25 10/03/2024 BASIC METAB OLIC PANEL (8) BUN 19 mg/dL 8-27 normal Not Available [facility] ([facility]) [address] [facility], [place], [address], 10/03/2024 08:07:58 10/02/19 25 10/03/2024 BASIC METAB OLIC PANEL (8) creatinine 0.73 mg/dL 0.57-1 .00 normal Not Available [facility] ([facility]) [address] [facility], [place], [address], 10/03/2024 08:07:58 10/02/19 25 10/03/2024 BASIC METAB OLIC PANEL (8) eGFR 94 mL/mi n/1.7 3 >59 normal Not Available [facility] ([facility]) [address] [place], [address], 10/03/2024 08:07:58 10/02/19 25 10/03/2024 BASIC METAB OLIC PANEL (8) BUN/creatini ne ratio 26 12-28 normal Not Available [facility] ([facility]) [address] [place], [address], 10/03/2024 08:07:58 10/02/19 25 10/03/2024 BASIC METAB OLIC PANEL (8) sodium 137 mmol/ L 134-14 4 normal Not Available [facility] ([facility]) [address] [place], [address], 10/03/2024 08:07:58 10/02/19 25 10/03/2024 BASIC METAB OLIC PANEL (8) potassium 4.4 mmol/ L 3.5-5. 2 normal Not Available [facility] ([facility]) [address] [place], [address], 10/03/2024 08:07:58 10/02/19 25 10/03/2024 BASIC METAB OLIC PANEL (8) chloride 100 mmol/ L 96-106 normal Not Available [facility] ([facility]) [address] [place], [address], 10/03/2024 08:07:58 10/02/19 25 10/03/2024 BASIC METAB OLIC PANEL (8) carbon dioxide, total 25 mmol/ L 20-29 normal Not Available [facility] ([facility]) [address] [place], [address], 10/03/2024 08:07:58 10/02/19 25 10/03/2024 BASIC METAB OLIC PANEL (8) calcium 10.4 mg/dL 8.7-10 .3 above high normal Not Available [facility] ([facility]) [address] [place], [address], 10/03/2024 08:07:58 10/02/19 25 10/03/2024 LIPID PANEL cholesterol, total 228 mg/dL 100-19 9 above high normal Not Available [facility] ([facility]) [address] [place], [address], 10/03/2024 08:07:59 10/02/19 25 10/03/2024 LIPID PANEL triglyceride s 125 mg/dL 0-149 normal Not Available [facility] ([facility]) [address] [place], [address], 10/03/2024 08:07:59 10/02/19 25 10/03/2024 LIPID PANEL HDL cholesterol 78 mg/dL >39 normal Not Available [facility] ([facility]) [address] [place], [address], 10/03/2024 08:07:59 10/02/19 25 10/03/2024 LIPID PANEL VLDL cholesterol isrrael 22 mg/dL 5-40 Not Available [facility] ([facility]) [address] [place], [address], 10/03/2024 08:07:59 10/02/19 25 10/03/2024 LIPID PANEL LDL chol calc ([facility]) 128 mg/dL 0-99 above high normal Not Available [facility] ([facility]) [address] [place], [address], 10/03/2024 08:07:59 10/02/19 25 10/03/2024 LIPID PANEL LDL calc comment: SECRETARY TO BOARD OF COMMISSIONERS Not Available [facility] ([facility]) [address] [place], [address], 10/03/2024 08:07:59 10/02/19 25 10/03/2024 HEMOG LOBIN A1C hemoglobin A1C 5.9 % 4.8-5. 6 above high normal Predi abete s: 5.7 - 6.4 Diabe joceline: >6.4 Glyce reuben contr ol for adult s with diabe joceline: <7.0 Not Available [facility] ([facility]) [address] [place], [address], 10/03/2024 08:07:59 10/02/19 25 10/03/2024 TSH RFX ON ABNOR MAL TO FREE T4 TSH 1.700 uIU/m L 0.450- 4.500 normal Not Available [facility] ([facility]) [address] [place], [address], 10/03/2024 08:08:00 10/02/19 25 10/04/2024 HEPAT IC FUNCT ION PANEL (7) protein, total 7.7 g/dL 6.0-8. 5 normal Not Available [facility] ([facility]) [address] [place], [address], 10/04/2024 08:07:35 10/02/19 25 10/04/2024 HEPAT IC FUNCT ION PANEL (7) albumin 4.4 g/dL 3.8-4. 9 normal Not Available [facility] ([facility]) [address] [place], [address], 10/04/2024 08:07:35 10/02/19 25 10/04/2024 HEPAT IC FUNCT ION PANEL (7) bilirubin, total 0.3 mg/dL 0.0-1. 2 normal Not Available [facility] ([facility]) [address] [place], [address], 10/04/2024 08:07:35 10/02/19 25 10/04/2024 HEPAT IC FUNCT ION PANEL (7) bilirubin, direct 0.11 mg/dL 0.00-0 .40 normal Not Available [facility] ([facility]) [address] [place], [address], 10/04/2024 08:07:35 10/02/19 25 10/04/2024 HEPAT IC FUNCT ION PANEL (7) alkaline phosphatase 101 IU/L 44-121 normal Not Available [facility]) [address] [facility], [place], [address], 10/04/2024 08:07:35 10/02/19 25 10/04/2024 HEPAT IC FUNCT ION PANEL (7) AST (SGOT) 26 IU/L 0-40 normal Not Available [facility] ([facility]) [address] [place], [address], 10/04/2024 08:07:35 10/02/19 25 10/04/2024 HEPAT IC FUNCT ION PANEL (7) ALT (SGPT) 37 IU/L 0-32 above high normal Not Available [facility] ([facility]) [address] [facility], [place], [address], 10/04/2024 08:07:35 10/02/19 25 10/03/2024 CONRAD EN AUTHO RIZAT ION written authorizatio n Margarito Nazario en Autho rizat ion Recei mary. Autho rizat ion recei mary from [employer] Ko for Corona Mike on 10-03 Logge d by Fredi Huggins Not Available [facility] ([facility]) [address] [facility], [place], [address], 10/04/2024 08:07:35 11/08/19 23 12/15/2021 MAMMO , scree cassandra, digit al, bilat eral No observ ation record ed. [email or web address] Not Available 11/07 15:38:12 04/22/20 23 04/22/2023 CT, angio gram, chest , w/ contr ast No observ ation record ed. [facility] (Emergency Room) [address], [place], [address], 04/23/2023 11:59:14 05/02/20 23 04/28/2023 XR, ribs, unila teral , 3 or more view No observ ation record ed. [facility] [place] [address] [facility], [place], [address], 05/02/2023 08:23:44 05/02/20 23 04/28/2023 XR, ribs, unila teral , w/ PA chest No observ ation record ed. KAROLINA [facility] [place] [address], [place], [address], 05/02/2023 11:59:59 05/02/20 23 04/28/2023 XR, ribs, unila teral , 3 or more view No observ ation record ed. [facility] [place] [address] [facility], [place], [address], 05/02/2023 08:23:44 01/23/20 24 01/23/2024 XR, thora cic spine , 2 view No observ ation record ed. KAROLINA [facility] [place] [address] [facility], [place], [address], 01/24/2024 10:17:52 03/28/20 24 03/28/2024 US, breas t, limit ed PROCED URE: MM Digita l Mammo Bilate ral, US Breast Bilate ral Limite d INDICA TION: Right breast pain. COMPAR MADELEINE: New baseli ne breast imagin g exams. TECHNI QUE: Full-f ield digita l CC and MLO 3D tomosy nthesi s images of both breast s were acquir ed. Comput er-aid ed detect ion (CAD) was utiliz ed in the interp retati on of this study. In additi on, target ed high-r esolut ion ultras ound of bilate ral breast s limite d. MAMMOG KASIA: DENSIT Y: There are scatte red areas of fibrog landul ar densit y. FINDIN GS: In the upper outer clearance representative ior right breast there is an oval circum scribe d mass which measur es 6 mm compat ible with a lymph node. There is no eviden ce of suspic ious mass, suspic ious calcif icatio ns or cecil ectura l distor tion in either breast . BILATE RAL BREAST ULTRAS OUND SCAN LIMITE D: Real-t aminata high-r esolut ion ultras ound scan was perfor med target ed to the upper outer right breast . In the 11:00 axis, 10 cm from the nipple . There is a benign intram ammary lymph node which measur es 0.4 x 0.3 x 0.3 cm which correl ates with the mass seen on mammog ivette. Patien t direct ed real-t aminata high-r esolut ion ultras ound scan was perfor med target ed to the area of left breast pain in the 12-4 o'cloc k axis. There is normal breast tissue withou t eviden ce of suspic ious abnorm ality. There is no eviden ce of a solid or cystic breast mass. IMPRES FIDE: There is no mammog raphic or sonogr aphic eviden ce of malign ora. RECOMM ENDATI ON: Annual mammog raphic screen ing BI-RAD S: 2 (Benig n) Lay letter mailed to gabby leach WSN: [id number] Orderi ng Physic umm: Volodymyr Del Valle ie Dictat ed By: Nahum Post MD Dictat ed Date/T aminata: 4:31 pm Review ed By: Nahum Post MD Signed By: Nahum Post MD Signed Date/T aminata: 4:31 pm Transc ribed By: VIPUL Transc ribed Date/T aminata: 4:11 pm Patijese t Class: Outpat ient (Outpt Imaging) [address] [facility], [place], [address], 04/08/2024 08:02:11 03/28/20 24 03/28/2024 mm digit al mammo bilat eral PROCED URE: MM Digita l Mammo Bilate ral, US Breast Bilate ral Limite d INDICA TION: Right breast pain. COMPAR MADELEINE: New baseli ne breast imagin g exams. TECHNI QUE: Full-f ield digita l CC and MLO 3D tomosy nthesi s images of both breast s were acquir ed. Comput er-aid ed detect ion (CAD) was utiliz ed in the interp retati on of this study. In additi on, target ed high-r esolut ion ultras ound of bilate ral breast s limite d. MAMMOG KASIA: DENSIT Y: There are scatte red areas of fibrog landul ar densit y. FINDIN GS: In the upper outer clearance representative ior right breast there is an oval circum scribe d mass which measur es 6 mm compat ible with a lymph node. There is no eviden ce of suspic ious mass, suspic ious calcif icatio ns or cecil ectura l distor tion in either breast . BILATE RAL BREAST ULTRAS OUND SCAN LIMITE D: Real-t aminata high-r esolut ion ultras ound scan was perfor med target ed to the upper outer right breast . In the 11:00 axis, 10 cm from the nipple . There is a benign intram ammary lymph node which measur es 0.4 x 0.3 x 0.3 cm which correl ates with the mass seen on mammog ivette. Patien t direct ed real-t aminata high-r esolut ion ultras ound scan was perfor med target ed to the area of left breast pain in the 12-4 o'cloc k axis. There is normal breast tissue withou t eviden ce of suspic ious abnorm ality. There is no eviden ce of a solid or cystic breast mass. IMPRES FIDE: There is no mammog raphic or sonogr aphic eviden ce of malign ora. RECOMM ENDATI ON: Annual mammog raphic screen ing BI-RAD S: 2 (Benig n) Lay letter mailed to gabby t WSN: [id number] Orderi ng Physic umm: Volodymyr Del Valle ie Dictat ed By: Nahum Post MD Dictat ed Date/T aminata: 4:31 pm Review ed By: Nahum Post MD Signed By: Ajegba MD, Folash alan O Signed Date/T aminata: 4:31 pm Transc ribed By: CSB Transc riptio n Date/T aminata: 4:11 pm Birads : Gabby t Class: Outpat ient (Outpt Imaging) [address] , [place], [address], 04/08/2024 08:01:56 08/28/1908/27/2024 bone densi ty No observ ation record ed. [facility] [address] [place], [address], 08/28/2024 12:39:56 Result Notes None recorded. Problems Name Problem SNOMED Code Status Onset Date Resolution Date Notes Provider Name and Address Organization Details Recorded Time Hypertens janie disorder 92852641 Active 2022 Not Available [facility] 3 08:42:01 Muscle spasm of cervical muscle of neck 77639459682 4 Active 2022 Not Available [facility] 3 08:42:00 Genital herpes simplex 00164313 Completed 202211/05/2022 ANGIE GUADALUPE MD [address] [facility] [address], [facility] [place], [address] , [facility] 3 14:41:11 Anxiety 65768847 Active 2022 Not Available [facility] 3 08:42:01 Mild intermitt ent asthma 490164427 Active 2022 Not Available [facility] 3 08:42:01 Allergic rhinitis 78577354 Active 2022 Not Available [facility] 3 08:42:01 History of urinary tract infection 94504556072 07 Active 2022 Not Available [facility] 3 08:42:00 Hyperlipi demia 61091020 Active 2022 Not Available [facility] 3 08:42:01 Depressiv e disorder 21571134 Active 2022 Not Available [facility] 3 08:42:01 Headache 11885567 Completed 202211/04/2022 tensio n-type ANGIE GUADALUPE MD [address], [place], [address] , [facility] 3 09:16:34 Vitamin D deficienc y 66682590 Active 2022 Not Available [facility] 3 08:42:00 History of SARS-CoV- 2 [id number] 5499432 Completed 202211/04/2022 ANGIE GUADALUPE MD [address], [place], [address] , [facility] 3 09:17:06 Urinary incontine nce 187425983 Completed 202211/04/2022 ANGIE GUADALUPE MD [address] [facility] [address], [place], [address] , [facility] 3 09:18:47 Genital herpes simplex 03647736 Active 2022 Not Available [facility] 3 08:42:00 Prediabet es 607239803 Active 2023 ANGIE GUADALUPE MD [address], [place], [address] , [facility] 4 19:33:50 Osteopeni a 600229814 Active 2024 ANGIE GUADALUPE MD [address], [place], [address] , [facility] 5 10:33:54 Problem Notes None recorded. Procedures Surgical History Date Name Laterality Status Provider Name and Address Organization Details Recorded Time 05/20/20 24 Colonoscopy completed Hodan Krishnan [facility] 05/20/2024 13:39:27 06/13/20 lumbar epidural steroid injection completed Hodan Krihsnan [facility] 06/13/2023 13:16:15 05/20 22 Most Recent Mammogram completed Hodan Krishnan [facility] 11/07/2022 15:38:04 10/11/19 22 hysterectomy completed Singh Manning MA [facility] 11/04/2022 08:29:10 05/22/19 84 section completed Singh Manning MA [facility] 11/04/2022 08:28:58 08/14/18 81 Appendectomy [facility] Singh Manning [facility] [facility] 11[facility]04[facility]22 08:29:26 abdominoplasty completed ANGIE GUADALUPE MD [address] [address], [place], [address], [facility] 11/04/2022 08:45:22 Imaging Results Imaging Date Name Status LastModified by Organiz ation Details LastModified Time 12/15/2021 MAMMO, screening, digital, bilateral completed [email or web address] Information not available 11/07/2022 15:38:12 04/22/2023 CT, angiogram, chest, w/ contrast completed [email or web address] [place] [address] (Emergency Room) [address] [facility], [place], [address], 04/23/2023 11:59:14 04/28/2023 XR, ribs, unilateral, 3 or more view completed [facility] [place] [address], [address], 05/02/2023 08:23:44 04/28/2023 XR, ribs, unilateral, w/ PA chest completed KAROLINA [facility] [place] [address], [address], 05/02/2023 11:59:59 04/28/2023 XR, ribs, unilateral, 3 or more view completed [facility] [place] [address] [address], [place], [address], 05/02/2023 08:23:44 01/23/2024 XR, thoracic spine, 2 view completed KAROLINA [facility] [place] [address], [place], [address], 01/24/2024 10:17:52 03/28/2024 US, breast, limited completed (Outpt Imaging) [address] [place], [address], 04/08/2024 08:02:11 03/28/2024 mm digital mammo bilateral completed (Outpt Imaging) [address] [place], [address], 04/08/2024 08:01:56 08/27/2024 bone density completed [facility] [address] [place], [address], 08/28/2024 12:39:56 Procedure Notes None recorded. Medical Equipment None Reported. Allergies Allergen ID Allergen Name Allergen Category Reaction Reaction Severity Criticality Documentation Date Start Date Code Code System Note Provider Name and Address Organization Details Recorded Time 33039 aspirin medicatio n angioedem a Not available Not available 11/04/20222022 [address] [facility] 3 14:17:56 94149 Non-stero idal anti-infl ammatory agent (product) medicatio n angioedem a Not available Not available 11/04/20222022 28879 [address] [facility] 3 14:17:56 42578 crab allergeni c extract food itching Not available Not available 11/04/20222022 [address] [facility] 3 14:17:56 34397 Medicinal product containin g cephalosp fanta and acting as antibacte rial agent (product) medicatio n Not available Not available Not available 11/04/2022 26769 [address] [facility] 14:17:56 Medications Name Sig Start Date Stop Date Status Note LastModified by Organization Details LastModified Time dermend bruise cream 127gm APLICAR A LOS ANTEBRAZ OS DOS VECES AL PACO 11/04 completed Not Available Not Available Not Available giltuss cough & cold tablet TOME EMILY TABLETA CADA SEIS HORAS CUANDO SEA NECESARI O 11/04 completed Not Available Not Available Not Available losartan 50 mg tablet TOME EMILY TABLETA TODOS LOS D 11/04 completed Not Available Not Available Not Available celecoxib 200 mg capsule TOME 1 CAPSULA POR VIA ORAL TODOS LOS HAYNES CUANDO SEA NECESARI O 2024 active Not Available Not Available Not Avai lable amoxicilli n 500 mg capsule TOME 2 C PSULAS POR V A ORAL AHORA. & TOME 1 C PSULA POR V A ORAL CADA SEIS HORAS POR 7 D 01/22 completed Not Available Not Available Not Available metformin 500 mg tablet TOME DOS TABLETAS EN LA MANANA Y EMILY TABLETA EN LA NOCHE CON COMIDAS 07/01 completed Not Available Not Available Not Available prednisone 10 mg tablet PLEASE SEE ATTACHED FOR DETAILED DIRECTIO NS 04/28 completed Not Available Not Available Not Available candesarta n 32 mg-hydroch lorothiazi de 12.5 mg tablet Take 1 tablet every day by oral route for 90 days. 2024 active Not Available Not Available Not Avai lable clindamyci n HCl 300 mg capsule TAKE 1 CAPSULE (300MG) BY ORAL ROUTE 3 TIMES PER DAY 11/04 completed Not Available Not Available Not Available albuterol sulfate 2.5 mg/3 mL (0.083 %) solution for nebulizati on EMILY AMPOLLET A PARA TERAPIA RESPIRAT ORIA CADA 4 HORAS CUANDO SEA NECESARI O active Not Available Not Available No t Available tramadol 37.5 mg-acetami nophen 325 mg tablet TAKE 1 TABLET BY MOUTH EVERY DAY AT BEDTIME FOR 10 DAYS 01/22 completed Not Available Not Available Not Available Lidocaine Viscous 2 % mucosal solution USE 5 ML EVERY 8 HOURS 11/04 completed Not Available Not Available Not Available tizanidine 4 mg tablet TOME EMILY TABLETA GERARDO VECES AL D A CUANDO SEA NECESARI O 01/22 completed Not Available Not Available Not Available fluconazol e 150 mg tablet TOME EMILY TABLETA INMEDIAT AMENTE NCIKI INDICADO 01/22 completed Not Available Not Available Not Available valacyclov ir 1 gram tablet GLENYS EMILY TAB RENNY DIARIA active prn Not Available Not Available No t Available phenazopyr idine 200 mg tablet GLENYS EMILY TABLETA GERARDO VECES AL PACO POR 2 HAYNES DESPUES DE LAS COMIDAS 07/01 completed Not Available Not Available Not Available metronidaz ole 0.75 % (37.5 mg/5 gram) vaginal gel INSERTAR VAGINAL EMILY VEZ AL PACO 04/28 completed Not Available Not Available Not Available prednisone 20 mg tablet TAKE 2 TABLETS EVERY DAY BY MOUTH DIRECTED FOR 7 DAYS. active Not Available Not Available No t Available amlodipine 5 mg tablet TOME EMILY TABLETA DIARIAME NTE 07/01 completed she is not taking it Not Available Not Available Not Available sulfametho xazole 800 mg-trimeth oprim 160 mg tablet TOME 1 TABLETA POR V A ORAL DOS VECES AL D A POR 7 D 07/01 completed Not Available Not Available Not Available oxycodone- acetaminop hen 5 mg-325 mg tablet TAKE 1 TABLET BY MOUTH EVERY 6 HOURS NEEDED FOR PAIN 04/28 completed Not Available Not Available Not Available methenamin e hippurate 1 gram tablet TOME EMILY TABLETA POR V A ORAL DOS VECES AL D A TAKE WITH CRANBERR Y SUPPLEME NT active Not Available Not Available No t Available betamethas one valerate 0.1 % topical cream APLIQUE AL KALIE AFECTADA DOS VECES AL D A active Not Available Not Available No t Available clotrimazo le-betamet hasone 1 %-0.05 % topical cream APLIQUE AL KALIE AFECTADA DOS VECES AL D A active Not Available Not Available No t Available orphenadri ne citrate ER 100 mg tablet,ext ended release TOME EMILY TABLETA DOS VECES AL D A active Not Available Not Available No t Available progestero ne micronized 200 mg capsule TOME DOS C PSULAS AL ACOSTARS E 07/01 completed Not Available Not Available Not Available gabapentin 300 mg capsule TAKE 1 CAPSULE BY MOUTH EVERY DAYAS NEEDED 01/22 completed Not Available Not Available Not Available budesonide 0.5 mg/2 mL suspension for nebulizati on USAR EIMLY AMPOLLET A PARA TERAPIA RESPIRAT ORIA DOS VECES AL PACO 11/04 completed Not Available Not Available Not Available montelukas t 10 mg tablet TOME 1 TABLETA POR VIA ORAL TODOS LOS HAYNES 2024 active Not Available Not Available Not Avai lable fluticason e propionate 220 mcg/actuat ion HFA aerosol inhaler Inhale by inhalati on route for 60 days. active Not Available Not Available No t Available metformin ER 500 mg tablet,ext ended release 24 hr Take 1 tablet every day by oral route as directed for 90 days, for diabetes . active Not Available Not Available No t Available loratadine 10 mg tablet TOME EMILY TABLETA TODOS LOS D active Not Available Not Available No t Available amoxicilli n 875 mg-potassi um clavulanat e 125 mg tablet TOME EMILY TABLETA CADA 12 HORAS POR 10 D 01/22 completed Not Available Not Available Not Available Ventolin HFA 90 mcg/actuat ion aerosol inhaler INHALE 2 PUFFS EVERY 4 HOURS BY INHALATI ON ROUTE NEEDED, FOR ASTHMA. active Not Available Not Available No t Available Laxative (bisacodyl ) 5 mg tablet,del ayed release 4 TABLETS ORALLY DIRECTED 1 DAY 07/01 completed Not Available Not Available Not Available azithromyc in 500 mg tablet TOME EMILY TABLETA DIARIA ANTES DE LAS COMIDAS 11/04 completed Not Available Not Available Not Available metaxalone 800 mg tablet TOME EMILY TABLETA GERARDO VECES AL D A 04/28 completed Not Available Not Available Not Available azelaic acid 15 % topical gel active Not Available Not Available Not Available bupropion HCl XL 300 mg 24 hr tablet, extended release Take 1 tablet every day by oral route. 2024 active Not Available Not Available Not Avai lable nitrofuran toin monohydrat e/macrocry stals 100 mg capsule TOME EMILY C PSULA TODOS LOS D 07/01 completed Not Available Not Available Not Available Janumet 50 mg-1,000 mg tablet 11/04 completed Not Available Not Available Not Available Symbicort 160 mcg-4.5 mcg/actuat ion HFA aerosol inhaler INHALE DANDO DOS SOPLIDOS INTO THE LUNGS DOS VECES AL D A SEG N LO INDICADO FOR 30 DAYS active Not Available Not Available No t Available cholecalci ferol (vitamin D3) 1,250 mcg (50,000 unit) capsule Take 1 capsule every week by oral route for 90 days. active Not Available Not Available No t Available GaviLyte-G 236 gram-22.74 gram-6.74 gram-5.86 gram oral solution TAKE 4000ML BY MOUTH DIRECTED 1 DAYS 07/01 completed Not Available Not Available Not Available QNASL 80 mcg/actuat ion nasal aerosol spray SPRAY 2 SPRAYS EVERY DAY BY INTRANAS AL ROUTE DIRECTED FOR 90 DAYS, FOR ALLERGIC RHINITIS . active Not Available Not Available No t Available azelastine 137 mcg-flutic asone 50 mcg/spray nasal spray HACER EMILY ATOMIZAC ION EN CADA FOSA NASAL 2 VECES AL PACO 07/01 completed Not Available Not Available Not Available cholecalci ferol (vitamin D3) 250 mcg (10,000 unit) tablet TOME EMILY TABLETA DIARIAME NTE active Not Available Not Available No t Available Lagevrio 200 mg capsule (EUA) TAKE 4 TAB EVERY 12 HOURS FOR 5 DAYS 11/04 completed Not Available Not Available Not Available Vitals Date Recorded Body height Body mass index (BMI) Body weight Heart rate Oxygen saturation Oxygen saturation in Arterial blood by Pulse oximetry Body temperature Systolic blood pressure Diastolic blood pressure Systolic blood pressure Diastolic blood pressure Provider Name and Address Organization Details Last Updated DateTime 3 168.91 cm 30.2 kg/m2 91797.5 5 g 97 /min 94 % 94 % 98.2 [degF] 155 mm[Hg] 90 mm[Hg] 160 mm[Hg] 90 mm[Hg] Singh Manning MA [facility] [place] 3 08:34:11 Date Recorded Body height Body mass index (BMI) Body weight Oxygen saturation Oxygen saturation in Arterial blood by Pulse oximetry Heart rate Body temperature Systolic blood pressure Diastolic blood pressure Provider Name and Address Organization Details Last Updated DateTime 3 168.91 cm 29.1 kg/m2 50288.1 g 98 % 98 % 92 /min 98 [degF] 136 mm[Hg] 81 mm[Hg] Rosemary Weaver MA [facility] 3 14:17:36 Date Recorded Body height Body mass index (BMI) Body weight Heart rate Oxygen saturation Oxygen saturation in Arterial blood by Pulse oximetry Body temperature Provider Name and Address Organization Details Last Updated DateTime 4 168.91 cm 31.2 kg/m2 84959.5 g 80 /min 99 % 99 % 98 [degF] Gloria Barr MA [facility] 4 09:55:13 Date Recorded Systolic blood pressure Diastolic blood pressure Provider Name and Address Organization Details Last Updated DateTime 01/23/2024 142 mm[Hg] 100 mm[Hg] ANGIE GUADALUPE MD [address], [address], [facility] [place] 01/23/2024 10:12:36 Date Recorded Body height Body mass index (BMI) Body weight Oxygen saturation Oxygen saturation in Arterial blood by Pulse oximetry Heart rate Body temperature Systolic blood pressure Diastolic blood pressure Provider Name and Address Organization Details Last Updated DateTime 4 168.91 cm 30.7 kg/m2 14450.0 3 g 98 % 98 % 84 /min 98 [degF] 128 mm[Hg] 84 mm[Hg] Rosemary Weaver MA [facility] [place] 4 11:11:28 Date Recorded Body height Body mass index (BMI) Body weight Heart rate Oxygen saturation Oxygen saturation in Arterial blood by Pulse oximetry Body temperature Systolic blood pressure Diastolic blood pressure Provider Name and Address Organization Details Last Updated DateTime 5 168.91 cm 31.3 kg/m2 12096.7 g 76 /min 98 % 98 % 97.6 [degF] 133 mm[Hg] 81 mm[Hg] Verito Lemon MA [facility] 5 09:04:58 Social History Question Answer Notes LastModified by Organizat ion Details LastModified Time Tobacco Smoking Status Former Smoker 3-4 years in college, 1 pack daily RAVINDER Cruz, [facility] 11/04/2022 08:28:19 What Is Your Level Of Alcohol Consumption? Occasional Information not available 11/04/2022 Are You Currently Employed? Yes Information not available 11/04/2022 What Type Of Diet Are You Following? REGULAR Information not available 11/04/2022 When Did You Quit Smoking? 16+yearssincel astcigarette Information not available 11/04/2022 Do You Use Any Illicit Or Recreational Drugs? No Information not available 11/04/2022 How Many Years Have You Smoked Tobacco? 4 Information not available 11/04/2022 Do You Or Have You Ever Used Any Other Forms Of Tobacco Or Nicotine? No Information not available 11/04/2022 Sex: Unknown Functional Status Question Answer Note LastModified by Organization D etails LastModified Time Are you able to walk? YESWOREST Information not available 11/04/2022 What is your exercise level? None Information not available 11/04/2022 Mental Status None recorded. Family History Relationship Description Onset Age of this Age Resolved Age Notes LastModified by Organization Details LastModified Time Mother Diabetes mellitus [email or web address] Not available 2022 08:26:14 Mother Alzheimer's disease [email or web address] Not available 2022 08:26:37 Mother Hypertensive disorder [email or web address] Not available 09:51:43 Maternal Grandmother Diabetes mellitus [email or web address] Not available 2022 08:26:20 Paternal Grandmother Diabetes mellitus [email or web address] Not available 2022 08:26:23 Father Malignant neoplasm of lung Heavy smoker [email or web address] Not available 11/04/2022 08:26:53 Medical History No medical history recorded. Gynecological History Statement/Question Response Date of Last Pap Smear Date of Last Colonoscopy Most Recent Mammogram 12/15/2021 Most Recent Bone Density Obstetrics History GPAL:G 0 P 0 0 0 0 Immunizations Vaccine Type Date Status Note Provider Nam e and Address Organization Details Recorded Time pneumococcal polysaccharide PPV23 2 completed RAVINDER Enciso, [facility] 04/28/2023 14:12:01 zoster recombinant [address] [facility] 01/23/2024 09:49:33 zoster recombinant [address] [facility] 01/23/2024 09:49:33 COVID-19, mRNA, LNP-S, PF, 30 mcg/0.3 mL dose [address] [facility] 01/23/2024 09:49:33 COVID-19, mRNA, LNP-S, PF, 30 mcg/0.3 mL dose [address] [facility] 01/23/2024 09:49:33 COVID-19, mRNA, LNP-S, PF, 50 mcg/0.5 mL 3 completed RAVINDER Kirk, [facility] 01/23/2024 09:49:33 Influenza, split virus, quadrivalent, PF [facility] 09:49:33 Past Encounters Encounter ID Performer Location Encounter Start Date Encounter Closed Date Diagnosis/Indication Diagnosis SNOMED-CT Code Diagnosis ICD10 Code Diagnosis Note [id number] ANGIE GUADALUPE MD Main Office [address] [facility] [address] [facility] RAVINDER DUMAS [id number] 11/04/2022 08:04:42 11/04/2022 09:11:48 Adult health examination [id number] Z00.00 Health Maintenanc e FemaleA) Patient was counseled on healthy diet, exercise and nutrition due to BMI of 30.2 B) ScreeningL ast Mammogram: start at age 49 stop at 73Date: 2Re sult: BIRADS-2Ne xt: repeat in one year 01/03 Last Pap smear: start at age 21 to age 65Date: 2/10/2023R esults: negative for any atypical cells, HPV negativeNe xt: 5 years Last Colonoscop y: start at age 45-75Date: 8-10 years agoResult: hemorrhoid sNext: pt is due, recent FOBT on 11/01/22 is negative Last DEXA scan:Date: due at 64Result: ??? C) Vaccines:I nfluenza: not this yearTdAP:Z no: due at 41JOY42: due at 56HDEB14: due at 01KPR25:PC V15:COVID: D) Routine blood work performed on 11/01/22, reviewedE) Updated patient's history RTC in one year for annual exam or sooner if any acute complaints Screening for malignant neoplasm of breast 892642208 Z12.39 - to be done on 01/03 Screening for malignant neoplasm of cervix 084526688 Z12.4 - pt did have a pap smear this year- referred to continued flume worker care Screening for malignant neoplasm of colon 424256820 Z12.11 - pt is due to for a colonoscop y, last was one was done in [place]- recent FOBT was negative Patient ne w to provider [id number] 42091 Z76.89 - pt provided records to patient, will need to be scanned into the chart Hepatitis C screening 41 3480181 Z11.59 Low back pain [id number] M54.51 - chronic- pt referred to specialist as her request- refused physical therapy- currently on celecoxib as needed for the pain Hypertensive disorder 38 661752 I10 - BP today 155/90 and 160/90 on repeat- pt is currently on candesarta n 32mg-HCTZ 12.5mg- BP not well controlled , RTC in 4 weeks for BP check and change in regimen Pt counselled on:-Dietar y Approaches to Stop Hypertensi on (DASH) is an eating plan rich in fruits, vegetables , whole grains, fish, poultry, nuts, legumes, and low-fat dairy. These foods are high in blount nutrients such as potassium, magnesium, calcium, fiber, and protein. -Advised continued adherence to medication s and low salt diet - extensive counsellin g done regarding dietary habits. -Encourage d regular aerobic exercise 30 min for 4-5 x week. -BP monitoring at home advised to bring log at every visit -Side-effe cts of high BP can cause Stroke, Heart attack and even d/w pt -D/w pt when to call 911 or reach out to Health care provider: >Think you are having a reaction to a medicine you are taking. >Have headaches that keep coming back (recurring ). >Feel dizzy. >Have swelling in your ankles. >Have trouble with your vision. Hyperlipidemia 10231546 E78.5 - recent lipid profile: cholestero l-202, triglyceri yunier-346, HDL-52, LDL-73- pt not currently on any medication for her choleteste rol- would need something to help patient control her triglyceri yunier, RTC for discussion Pt counselled on:- Eat a heart-heal thy diet - Choose healthy fats. Avoid saturated fats that are found primarily in red meat, coats, sausage, and full-fat dairy products. Advised to choose lean proteins like chicken, turkey, and fish when possible. Switch to low-fat or fat-free dairy. And use monounsatu rated fats like olive and canola oil for cooking. - Cut out the trans fats. Trans fats are found in fried food and processed foods, like cookies, crackers, and other snacks. - Eat more omega-3s. Counseled on eating more fish, including salmon, mackerel, bobo ,nuts and seeds, like walnuts and flax seeds. - Increase your fiber intake. By eating more oats, brain, fruits, beans, and vegetables , can lower your LDL cholestero l levels. - Eat more fruits and veggies. [id number] ANGIE GUADALUPE MD Main Office [address] [place] [address] 04/28/2023 14:09:22 04/28/2023 14:44:36 Rib pain [id number] R07.81 - based on patient clinical exam most likely costochond ritis> cardiac etiology rule out by ED- pt advised to continue celecoxib as needed- pt given gabapentin 300mg to take at night to help with sleep> pt advised not to take with muscle relaxor> pt advised she cannot drive with medication - pt advised to use an incentive spirometer - ordered a repeat x-ray to ensure there is fracture as patient does have sever pain Transition of care from emergency department to self-care [id number] 85798 Z76.89 - pt brought ED paper work which was reviewed [id number] ANGIE GUADALUPE MD Main Office [address] [facility] RAVINDER DUMAS [id number] 01/23/2024 09:30:09 01/23/2024 10:20:53 Adult health examination [id number] Z00.00 Health Maintenanc e FemaleA) Patient was counseled on healthy diet, exercise and nutrition due to BMI of 31.2 B) ScreeningL ast Mammogram: start at age 49 stop at 73Date: 12/15/2021e sult: BIRADS-2Ne xt: ordered diagnostic mammogram as patient is having tenderness at the left breast Last Pap smear: start at age 21 to age 65Date: 09/23/2022R esults: negative for any atypical cells, HPV negativeNe xt: 5 years Last Colonoscop y: start at age 45-75Date: 8-10 years agoResult: hemorrhoid sNext: pt is due, recent FOBT on 11/01/22 is negative Last DEXA scan:Date: due at 64Result: ??? C) Vaccines:I nfluenza: 07/24/2023 TdAP:Zoste r: 07/24/2023 , 01/02/2024 CV13: due at 89NRNP85: 07/04/2022 PCV20:PCV1 5:COVID: 11/22/2020, 06/19/2021, 07/24/2023 D) Routine blood work orderedE) Updated patient's history RTC in one year for annual exam or sooner if any acute complaints Hyperlipidemia 84833175 E78.5 - recent lipid profile: cholestero l-202, triglyceri yunier-346, HDL-52, LDL-73- pt not currently on any medication for her choleteste rol- ordered repeat blood work Pt counselled on:- Eat a heart-heal thy diet- Choose healthy fats. Avoid saturated fats that are found primarily in red meat, coats, sausage, and full-fat dairy products. Advised to choose lean proteins like chicken, turkey, and fish when possible. Switch to low-fat or fat-free dairy. And use monounsatu rated fats like olive and canola oil for cooking.- Cut out the trans fats. Trans fats are found in fried food and processed foods, like cookies, crackers, and other snacks.- Eat more omega-3s. Counseled on eating more fish, including salmon, mackerel, bobo ,nuts and seeds, like walnuts and flax seeds.- Increase your fiber intake. By eating more oats, brain, fruits, beans, and vegetables , can lower your LDL cholestero l levels.- Eat more fruits and veggies. Hypertensive disorder 38 611040 I10 - elevated- BP today manually was 142/100- pt is not complaint with taking amlodipine 5mg -> pt was informed she needed to start this back- pt is currently on candesarta n 32mg-HCTZ 12.5mg- RTC in 6 months Pt counselled on:-Dietar y Approaches to Stop Hypertensi on (DASH) is an eating plan rich in fruits, vegetables , whole grains, fish, poultry, nuts, legumes, and low-fat dairy. These foods are high in blount nutrients such as potassium, magnesium, calcium, fiber, and protein.-A dvised continued adherence to medication s and low salt diet - extensive counsellin g done regarding dietary habits.-En couraged regular aerobic exercise 30 min for 4-5 x week.-BP monitoring at home advised to bring log at every visit-Side -effects of high BP can cause Stroke, Heart attack and even d/w pt-D/w pt when to call 911 or reach out to Health care provider:> Think you are having a reaction to a medicine you are taking.>Alan ve headaches that keep coming back (recurring ).>Feel dizzy.>Hav e swelling in your ankles.>Alan ve trouble with your vision. Allergic rhinitis 393035 04 J30.9 - with associated asthma- c/w azelestine -flonase spray -> she gets this in [place] Anxiety 18862163 F41.9 - JAIME-7 score of 8- c/w bupropion ER 300mg QD- counsellin g provided Depressive disorder 8102 4851 F32.A - PHQ-9 score of 2- c/w bupropion ER 300mg QD- denies SI/HI- counsellin g provided History of urinary tract infection [id number] 107 Z87.440 - pt was referred to urology has not yet gone, pt was provided with a new referral however for her to schedule- ordered UA with urine culture- pt does take macrobid after intercours e Mild inter mittent asthma 082592817 J45.20 - c/w albuterol as needed- c/w flovent HFA 220mcg- c/w singular 10mg QD Screening for malignant neoplasm of cervix 491733606 Z12.4 - pt did have a pap smear this year- referred to continued flume worker care Screening for malignant neoplasm of colon 643851246 Z12.11 - pt is due to for a colonoscop y, last was one was done in [place]- recent FOBT was negative- pt is due to for colonscopy , ordered Low back pain 865198810 M54.51 - chronic- pt also has neck pain and now thoracic area- pt referred to specialist as her request -> pt is following with physiatry- refused physical therapy- currently on celecoxib as needed for the pain- ordered x-ray of the thoracic spine for further evaluation - pt was advised to discuss her concern with her specialist as well Pain of left breast [id number] N64.4 - has been on-going for three months- pt last screening mammogram was in 2021- ordered diagnostic mammogram and U/S of the left breast for further evaluation Skin lesion [id number] L98 .9 - pt has several skin lesion, should get annual skin check- pt referred to derm Impaired f asting glycemia [id number] R73.01 - will check HbA1c- pt is currently taking metformin 500mg QD Thoracic back pain [id number] 8004 M54.6 - please see above at back pain Fatigue 76036047 R53.83 Z00.00 Hepatitis C screening 41 1867514 Z11.59 HIV screening [id number] Z11.4 [id number] ANGIE GUADALUPE MD Main Office [address] [facility] [place] [address] 07/01/2024 10:53:24 07/01/2024 11:32:46 History of urinary tract infection [id number] 107 Z87.440 - pt was seen by urology on 04/2024- was given ppx however pt not complaint with medication (methenami ne)- for imaging Low back pain [id number] M54.50 - chronic- pt also has neck pain and now thoracic area- c/w physiatry- refused physical therapy- currently on celecoxib as needed for the pain- pt was advised to discuss her concern with her specialist as well Screening for malignant neoplasm of cervix 529166553 Z12.4 - pt did have a pap smear this year- referred to continued [facility] worker care Bone density finding 385 625113 M85.89 Osteoarthr osis of the carpometacarpal joint of the thumb 27094091 M18.9 - pt has been getting steroid injection in the location, right side- advised to follow with physiatry Hypertensive disorder 38 365610 I10 - at goal- BP today manually was 128/84- pt is not complaint with taking amlodipine 5mg -> has blood pressure is currently under control to monitor for know, will not add back- pt is currently on candesarta n 32mg-HCTZ 12.5mg- RTC in 6 months Pt counselled on:-Dietar y Approaches to Stop Hypertensi on (DASH) is an eating plan rich in fruits, vegetables , whole grains, fish, poultry, nuts, legumes, and low-fat dairy. These foods are high in blount nutrients such as potassium, magnesium, calcium, fiber, and protein.-A dvised continued adherence to medication s and low salt diet - extensive counsellin g done regarding dietary habits.-En couraged regular aerobic exercise 30 min for 4-5 x week.-BP monitoring at home advised to bring log at every visit-Side -effects of high BP can cause Stroke, Heart attack and even d/w pt-D/w pt when to call 911 or reach out to Health care provider:> Think you are having a reaction to a medicine you are taking.>Alan ve headaches that keep coming back (recurring ).>Feel dizzy.>Hav e swelling in your ankles.>Alan ve trouble with your vision. Prediabetes 332598992 R7 3.03 - HbA1c was 6.7 done in 01/2024- pt was started on metformin by previous PCP, she is not always compliant with this Fatigue 46896870 R53.83 Z00.00 Hyperlipidemia 16481267 E78.5 Z00.00 FASTING Mild inter mittent asthma 062030249 J45.20 - c/w albuterol as needed- c/w flovent HFA 220mcg- c/w singular 10mg QD- meds refilled [id number] Javed Sanders MD Main Office [address] [facility] [address] [facility] [place], [place] [address] 09/05/2024 08:50:33 09/05/2024 09:23:50 Vitamin D deficiency 24426324 E55.9 -takes daily vitamin D supplement s provided by another provider when she is in [place]-will check vitamin D levels Osteoarthr osis of the carpometacarpal joint of the thumb 33334013 M18.9 - pt has been getting steroid injection in the location, right side>appro x. every 4-5 months- follows with physiatry Family his tory of Rheumatoid arthritis 159868469 Z82.61 -pt requests blood work for RA as she has a family hx of RA-was advised by physiatry- endorses multiple joint pain in bilateral hands and wrists Exacerbati on of mild persistent asthma 728527466 J45.31 hx of asthma-use s her albuterol inhaler; with minimal to no relief-end orses coughing fits, wheezing, and difficulty sleeping due to asthma exacerbati ons-reques ts referral to pulmonolog ist-will provide symbicort inhaler and short prednisone course Health Concerns Section Related Observation LastModified by Organization Detai ls LastModified Time None Recorded Concern Status LastModified by Organization Details LastModified Time None Recorded Advance Directives Directive None Recorded Payers Encounter Date Sequence Insurance Name Policy Number Policy Grant Covered Member ID Grant Member ID Guarantor Name 11/04/2022 1 [employer] (POS) [id number] Franklin Robles [id number] Franklin Robles 04/28/2023 1 [employer] (POS) [id number] Franklin Robles [id number] Franklin Robles 01/23/2024 1 [facility] NET PLAN (MEDICAID HMO) [id number] Franklin Robles [id number] Franklin Robles 07/01/2024 2 [place] [facility] Franklin Robles [id number] Franklin Robles 07/01/2024 1 [facility] NET PLAN (MEDICAID HMO) [id number] Franklin Robles [id number] Franklin Robles 09/05/2024 2 [place] [facility] Franklin Robles [id number] Franklin Robles 09/05/2024 1 [facility]MEDICAID HMO) [id number] Franklin Robles [id number] Franklin Robles Notes Date Note Type Note Provider Name and Address Organization Details Recorded Time 11/04/2022 text/html Franklin Robles is a 57 year old F who presented to the clinic to establish care. Pt has been going back and forth from [place] and [place] to receive care. Complaints: weight gain Is not using ASA.OTC/Herbal supplements use: none, sometimes vitamin d Gynecologic HistoryPatient's last menstrual period in menopause at 55Sexually active: yes with boyfriend/partneerCon traception: menopause+ fibroidsDenies cysts, stds, abnormal paps Obstetric HistoryGravida: 3Para: 3AB: 0LivinComplications: eclampsia, C/S Drug use: never userEtoh use: wine on fridaystobacco use: never userspf/derm: Dental: every 6 monthsEye: once a yearDiet: regularActivity: does not exercise ANGIE GUADALUPE MD [address] [address], [place], [phone], [facility] 11/05/2022 14:47:14 04/28/2023 text/html Emergency Depart ment Follow-Up RecordReported bypatient.Discharge Informationname of ED [facility]; emergency department discharge date: (Please enter in format 'MM/DD/YYYY') (around 04/21/2023); date of follow-up phone call: (Please enter in format 'MM/DD/YYYY') (04/28/2023)Notes:In the ED, ACS was ruled out. Chest x-ray was done which was negative. Franklin Robles is a 57 year old F who presented to the clinic complaining of right sided rib pain. Ozzie pain started two weeks ago and patient presented to the ED one week ago. Pt is unsure if there was incident however was pulling a heavy luggage. As per patient, the pain is deep, sharp and radiates to the back. The pain is a 7/10. Pt has been taking celocoxib and a muscle relaxor she got in [place] (norflex). Pt does have some shortness of breath when the pain is severe. ANGIE GUADALUPE MD [address] [facility] [address], [place], [address], [facility] [place] 04/30/2023 16:39:20 01/23/2024 text/html Musculoskeletal PainReported bypatient.Location:bi lateral neck; thoracic spine; lumbar spine Quality:aching Duration:present for >12 months Timing:intermittent Context:prior back problems; had evaluations by back specialist Alleviating factors:relieved by changing position Aggravating factors:movement/posi tioning Associated Symptoms:no fever; no weak limbs; no tingling; no numbness of the legs/feet; on incontinence ADL (Activities of Daily Living)improve with medicationNotes:Pt following with psychiatry who is giving patient neck injection, last done in November. However did not provide relief. Pt having thoracic back pain for the last 6 months. Did not bring up this with psychiatrist. Franklin Robles is a 58 year old F who presented to the clinic for her annual exam. Pt has been going back and forth from [place] and [place] to receive care. Complaints: left sided breast pain and neck pain Is not using ASA.OTC/Herbal supplements use: none, sometimes vitamin d Gynecologic HistoryPatient's last menstrual period in menopause at 55Sexually active: yes with boyfriend/partnerCont raception: menopause+ fibroidsDenies cysts, stds, abnormal paps Obstetric HistoryGravida: 3Para: 3AB: 0LivinComplications: eclampsia, C/S Drug use: never userEtoh use: wine dialytobacco use: never userspf/derm: intermittently Dental: every 6 monthsEye: once a yearDiet: regularActivity: does not exercise ANGIE GUADALUPE MD [address] [facility] [address], [place], [address], [facility] 01/23/2024 10:26:57 07/01/2024 text/html Back PainReporte d bypatient.Location:pa in is not radiating Quality:aching Severity:same Duration:chronic Context:prior back problems; used medications for back pain; had evaluations by back specialist Associated Symptoms:no numbness of the legs/feet; no tingling Franklin Robles is a 58 year old F who presents to the clinic for her complaints of recurrent urinary track infection and back pain. Recurrent UTI: pt has been referred to urology for this problem and she was last seen on 05/03/2024. They ordered U/S, cytology and pt was given methenamine hippurate. Pt does not take the medication daily. ANGIE GUADALUPE MD [address] [address], [place], [address], [facility] 07/01/2024 11:34:24 09/05/2024 text/html Franklin is a 59y r old F who presents for multiple concerns Vitamin D: has been taking vitamin D supplements provided by a provider in [place]. Pt requests a prescription of vitamin D. asthma: pt reports of worsening asthma since returning [facility] the [facility]. When staying in [place], her asthma is not an issue as the weather is warmer. Endorses coughing, asthma exacerbations, and issues with sleeping due to the asthma. Uses her albuterol inhaler multiple times a day with minimal to no relief. Family Hx of RA: reports of following with physiatry and was advised to test for RA due to her family hx. Has OA of her hands in which she gets injections for. Reports of multiple joint pain in her hands/wrists. DEE RUSHING [address] [facility] [address], [place], [address], [facility] 09/05/2024 09:29:21 OBGyn Episode No OBEpisode recorded.
== END 2024-12-12 15:02 | disposition home or self-care (01) ==
LOC: HO.HPS 14:14
PROVIDERS: PCP Student in an Organized Health Care Education/Training Program; Referring Provider Student in an Organized Health Care Education/Training Program; Visit Provider Hospitalist
DX: J30.9 Allergic rhinitis, unspecified (principal); T78.40XA Allergy, unspecified, initial encounter; J45.40 Moderate persistent asthma, uncomplicated; G47.33 Obstructive sleep apnea (adult) (pediatric)
CPT/HCPCS: 99204

== ENCOUNTER 2025-02-04 16:11 | Outpatient (REF) | payer BC, SELFPAY ==
--- NOTE | ~2025-02-04 | XR_ITS ---
EXAMINATION: XR HAND, RIGHT CLINICAL INFORMATION: pain COMPARISON: None available. TECHNIQUE: PA, lateral, and oblique views of the right hand. FINDINGS: There is asymmetric narrowing, sclerosis, and degenerative cystic change with marginal osteophytes involving the first carpal metacarpal joint. No other abnormalities. XR/XR hand RT min 3V IMPRESSION: Moderate to severe first CMC joint osteoarthritis, right Electronically signed by: João Rodriguez MD 02/04/2025 04:42 PM EDT
--- NOTE | ~2025-02-04 | XR_ITS ---
EXAMINATION: XR LUMBOSACRAL SPINE CLINICAL INFORMATION: lumbago with right sided sciatica COMPARISON: None available. TECHNIQUE: Three views of the lumbosacral spine. FINDINGS: There are 5 nonrib-bearing lumbar segments. L2-3: There is subtle retrolisthesis. L3-4: There is subtle retrolisthesis and mild disc space narrowing. L4-5: There is moderate disc space narrowing, vacuum phenomena, and endplate osteophytes. L5-S1: There is facet sclerosis and osteophytes. XR/XR lumbar spine 2-3V IMPRESSION: Degenerative changes are most pronounced at L4-5. Electronically signed by: João Rodriguez MD 02/04/2025 04:44 PM EDT
--- NOTE | ~2025-02-04 | XR_ITS ---
EXAMINATION: XR HAND, LEFT CLINICAL INFORMATION: pain COMPARISON: None available. TECHNIQUE: PA, lateral, and oblique views of the left hand. FINDINGS: There is moderate asymmetric narrowing of the fifth DIP joint with marginal osteophytes. There is radial deviation. Marginal osteophytes are visible first carpal metacarpal joint. XR/XR hand LT min 3V IMPRESSION: Osteoarthritis of the fifth DIP joint in first CMC joint. Left hand Electronically signed by: João Rodriguez MD 02/04/2025 04:41 PM EDT
--- OUTSIDE RECORDS SUMMARY | 2025-02-04 18:59 | XMS_ITS | Data Portability ---
Author Organization [facility], Main Office Address [address] [facility] [place] [id number] Care Team Providers Care Supervisor Cell Room Name Role Phone ANGIE GUADALUPE Primary Care Provider BEV CHOWDHURY Phys. Med. & Rehab Assessment Encounter [...] Organization Details Last Modified Time Details Appointments None record ed. Lab BMP, serum or plasma 2024 025 KAROLINA [facility] (Centralized Electronic Ordering - All Locations), Patient Can Go To The Location Of Their Choice, 15:20:49 microa lbumin /creat inine, mass ratio, urine 2024 025 KAROLINA [facility] ([facility]ized [facility] Ordering - All Locations), Patient Can Go To The Location Of Their Choice, 5 15:18:21 HbA1c (hemog lobin A1c), blood 2024 025 KAROLINA [facility] ([facility]ized [facility] Ordering - All Locations), Patient Can Go To The Location Of Their Choice, 5 15:18:21 urinal ysis comple te, reflex cultur e 2024 025 [email or web address] [facility], [address], [place], [address], 09:28:36 lipid panel, serum 2024 025 KAROLINA [facility] ([facility]ized [facility] Ordering - All Locations), Patient Can Go To The Location Of Their Choice, 15:20:51 ALT (dianna ne aminot matildashannan rasjoo), serum or plasma 2024 025 KAROLINA [facility] ([facility]ized [facility] Ordering - All Locations), Patient Can Go To The Location Of Their Choice, 15:20:50 vitami n D, 25-hyd melissa, total, serum 2024 KAROLINA [facility] ([facility] Ordering - All Locations), Patient Can Go To The Location Of Their Choice, 15:18:20 rf (rheum atoid factor ), serum 2024 025 KAROLINA [facility] ([facility] Ordering - All Locations), Patient Can Go To The Location Of Their Choice, 20:06:19 TAWANA (antin uclear antibo dies) screen , serum 2024 025 KAROLINA [facility] ([facility] Ordering - All Locations), Patient Can Go To The Location Of Their Choice, 20:06:22 ccp (cycli c citrul linate d peptid e) iga+ig g, serum 2024 025 KAROLINA [facility] ([facility] Ordering - All Locations), Patient Can Go To The Location Of Their Choice, 20:06:21 vitami n D, 25-hyd melissa, total, serum 2024 025 KAROLINA [facility] ([facility] Ordering - All Locations), Patient Can Go To The Location Of Their Choice, 20:06:20 HbA1c (hemog lobin A1c), blood 2023 024 KAROLINA [facility] ([facility] Order[facility] - All Locations), Patient Can Go To The Location Of Their Choice, [id number] 5 08:07:59 lipid panel, serum 2023 024 [email or web address] [facility], [address], [place], [address], 5 09:47:41 BMP, serum or plasma 2023 024 KAROLINA [facility], [address], [place], [address], 5 08:07:58 CBC w/ auto diff 2023 024 KAROLINA [facility], [address], [place], [address], 5 08:07:57 TSH, ultra- sensit janie, serum 2023 024 [email or web address] [facility], [address], [place], [address], 5 09:47:41 urinal ysis comple te, reflex cultur e 2023 024 KAROLINA [facility] ([facility] Ordering - All Locations), Patient Can Go To The Location Of Their Choice, [id number] 4 12:07:08 CBC w/ auto diff 2023 024 KAROLINA [facility], [address], [place], [address], 4 12:07:07 TSH, ultra- sensit janie, serum 2023 024 KAROLINA [facility], [address], [place], [address], 4 12:07:12 HIV 1 + 2, meanin gful use set 2023 024 KAROLINA [facility] ([facility] Ordering - All Locations), Patient Can Go To The Location Of Their Choice, 12:07:11 BMP, serum or plasma 2023 024 KAROLINA [facility] ([facility] Ordering - All Locations), Patient Can Go To The Location Of Their Choice, 4 12:07:09 ALT (dianna ne amparohany carreon), serum or plasma 2023 024 KAROLINA [facility] ([facility] Ordering - All Locations), Patient Can Go To The Location Of Their Choice, 4 12:07:13 lipid panel, serum 2023 024 KAROLINA [facility] ([facility] Ordering - All Locations), Patient Can Go To The Location Of Their Choice, 12:07:10 HbA1c (hemog lobin A1c), blood 2023 024 KAROLINA [facility] ([facility] Ordering - All Locations), Patient Can Go To The Location Of Their Choice, 4 12:07:11 Hepati tis C IgG Ab, qual, serum 2023 024 KAROLINA [facility] ([facility] Ordering - All Locations), Patient Can Go To The Location Of Their Choice, [id number] 4 12:07:10 Referral physic al therap ist referr al 2024 025 [email or web address] [facility], [address] [place] [address] -, [address], [place], [address], 5 15:34:41 pulmon ologis t referr al - hx of asthma . pt reques ts to see pulmon ologis t to follow asthma 2024 025 JUANITO Mcdowell MD, [address] [place] [address] [place], [address], 5 14:40:36 gyneco logist referr al 2023 024 Not available 4 11:33:10 urolog ist referr al 2023 024 [email or web address] [facility], [address], [place], [address], 4 14:24:37 gyneco logist referr al 2023 024 [email or web address] Not available 4 14:24:37 dermat ologis t referr al 2023 024 [email or web address] Coto MD, [address], [place], [address], 4 14:24:38 Procedures colono scopy screen ing (PROC) 2023 024 [email or web address] [facility], [address], [place], [address], 4 08:30:46 Surgeries None record ed. Imaging MAMMO, screen ing, bilate ral 2024 025 [email or web address] Not available 5 15:34:41 bone densit y 2023 024 KAROLINA Not available 5 09:08:44 XR, thorac ic spine, 2 view 2023 024 KAROLINA Not available 4 11:39:27 MAMMO, diagno stic, unilat eral - left breast RUQ at 9 oclock 2023 024 [email or web address] Not available 4 08:59:18 US, breast , unilat eral - left breast RUQ at 9 oclock 2023 024 [email or web address] [facility], [address], [address], [place], [address], 4 08:47:42 XR, ribs, unilat eral, w/ PA chest - RIGHT SIDE 2022 023 KAROLINA [facility], [address], [address], [place], [address], 3 05:34:20 Medication Orders Symbic ort 160 mcg-4. 5 mcg/ac tuatio n HFA aeroso l inhale r 2024 025 [id number], [address] [place], [address], 5 09:19:32 predni sone 20 mg tablet 2024 025 [id number], [address] [place], [address], 5 15:02:04 albute rol sulfat e HFA 90 mcg/ac tuatio n aeroso l inhale r 2023 024 [facility], [address] [place], [address], 4 11:33:11 gerson ukast 10 mg tablet 2023 024 [id number], [address] [place], [address], 4 11:33:11 Floven t HFA 220 mcg/ac tuatio n aeroso l inhale r 2023 025 [id number], [address] [place], [address], 5 07:43:35 amlodi pine 5 mg tablet 2023 024 [id number], [address] [place], [address], 4 11:23:28 gabape ntin 300 mg capsul e 2022 023 [email or web address] [id number], [address] [place], [address], 09:46:50 Patient TargetsNo targets recorded. Patient Instructions Encounter Date Encounter Id Patient Instructions Last Modified By Organization Details Last Modified Time 01/23/2024 [id number] alergias: instrucciones de cuidado - [allergies: care instructions] Not available 01/23/2024 10:10:02 aprenda sobre el alivio del dolor de espalda - [learning about relief for back pain] Not available 01/23/2024 10:10:02 cuidado de la espalda y prevenci n de lesiones: instrucciones de cuidado - [back care and preventing injuries: care instructions] Not available 01/23/2024 10:10:02 C MO volver a la normalidad despu s de un dolor en la parte baja de la espalda: instrucciones de cuidado - [getting back to normal after low back pain: care instructions] Not available 01/23/2024 10:10:02 parte superior d e la espalda saludable: ejercicios - [healthy upper back: exercises] Not available 01/23/2024 10:10:44 aprenda sobre lo s trastornos del estado de patience - [learning about mood disorders] Not available 01/23/2024 10:10:03 prueba de vih: instrucciones de cuidado - [HIV testing: care instructions] Not available 01/23/2024 10:13:21 colesterol alto: instrucciones de cuidado - [high cholesterol: care instructions] Not available 01/23/2024 10:10:01 prediabetes: instrucciones de cuidado - [prediabetes: care instructions] Not available 01/23/2024 10:10:02 lesiones cut neas: instrucciones de cuidado - [skin lesions: care instructions] Not available 01/23/2024 10:10:02 07/01/2024 [id number] low back pain: exercises Not available 07/01/2024 11:33:10 01/23/2025 [id number] alergias: instrucciones de cuidado - [allergies: care instructions] Not available 01/23/2025 15:18:10 colesterol alto: instrucciones de cuidado - [high cholesterol: care instructions] Not available 01/23/2025 15:18:10 aprenda sobre lo s trastornos del estado de patience - [learning about mood disorders] Not available 01/23/2025 15:18:10 Reason for Referral Manager Mall Referral for Sc reening for malignant neoplasm of cervix Referring Physician: Angie Guadalupe [facility], Encounter Date: 01/23/2024 Urologist Referral for Histo ry of urinary tract infection Referring Physician: Angie Guadalupe [facility], Encounter Date: 01/23/2024 Equipment Inspector Referral for S kin lesion Referring Physician: Angie Guadalupe [facility], Encounter Date: 01/23/2024 Manager Mall Referral for Sc reening for malignant neoplasm of cervix Referring Physician: Angie Guadalupe [facility], Encounter Date: 07/01/2024 [facility] Referral for E xacerbation of mild persistent asthma hx of asthma. pt requests to see professor of economics to follow asthma Referring Physician: Swathi Ferrer [facility], Encounter Date: 09/05/2024 Physical Therapist Referral for Chronic low back pain Referring Physician: Angie Guadalupe [facility], Encounter Date: 01/23/2025 Results Created Date Observation Date Name Description Value Unit Range Abnormal Flag Note LastModifiedBy Organization Detail LastModifiedTime 01/30/20 24 01/31/2024 CBC WITH DIFFE RENTI AL/PL ATELE T WBC 6.2 x10e3 /uL 3.4-10 .8 Not Available [facility] ([facility]) [address], [place], [address], 02/02/2024 12:07:07 06/18/20 24 01/31/2024 CBC WITH DIFFE RENTI AL/PL ATELE T RBC 4.33 x10e6 /uL 3.77-5 .28 Not Available [facility] ([facility]) [address], [place], [address], 02/02/2024 12:07:07 01/30/20 24 01/31/2024 CBC WITH DIFFE RENTI AL/PL ATELE T hemoglobin 13.1 g/dL 11.1-1 5.9 Not Available [facility] ([facility]) [address] [facility] [address], [place], [address], 02/02/2024 12:07:07 01/30/20 24 01/31/2024 CBC WITH DIFFE RENTI AL/PL ATELE T hematocrit 41.2 % 34.0-4 6.6 Not Available [facility] ([facility]) [address] [facility] [address], [place], [address], 02/02/2024 12:07:07 01/30/20 24 01/31/2024 CBC WITH DIFFE RENTI AL/PL ATELE T MCV 95 fL 79-97 Not Available [facility] ([facility]) [address] [place], [address], 02/02/2024 12:07:07 01/30/20 24 01/31/2024 CBC WITH DIFFE RENTI AL/PL ATELE T MCH 30.3 pg 26.6-3 3.0 Not Available [facility] ([facility]) [address] [place], [address], 02/02/2024 12:07:07 01/30/20 24 01/31/2024 CBC WITH DIFFE RENTI AL/PL ATELE T MCHC 31.8 g/dL 31.5-3 5.7 Not Available [facility] ([facility]) [address] [place], [address], 02/02/2024 12:07:07 06/18/20 24 01/31/2024 CBC WITH DIFFE RENTI AL/PL ATELE T RDW 13.9 % 11.7-1 5.4 Not Available [facility] ([facility]) [address] [facility] [address], [place], [address], 02/02/2024 12:07:07 01/30/20 24 01/31/2024 CBC WITH DIFFE RENTI AL/PL ATELE T platelets 392 x10e3 /uL 150-45 0 Not Available [facility] ([facility]) [address] [facility] [address], [place], [address], 02/02/2024 12:07:07 01/30/20 24 01/31/2024 CBC WITH DIFFE RENTI AL/PL ATELE T neutrophils 50 % not estab. Not Available [facility] ([facility]) [address] [facility] [address], [place], [address], 02/02/2024 12:07:07 01/30/20 24 01/31/2024 CBC WITH DIFFE RENTI AL/PL ATELE T lymphs 35 % not estab. Not Available [facility] ([facility]) [address] [facility] [address], [place], [address], 02/02/2024 12:07:07 01/30/20 24 01/31/2024 CBC WITH DIFFE RENTI AL/PL ATELE T monocytes 10 % not estab. Not Available [facility] ([facility]) [address] [facility] [address], [place], [address], 02/02/2024 12:07:07 01/30/20 24 01/31/2024 CBC WITH DIFFE RENTI AL/PL ATELE T eos 3 % not estab. Not Available [facility] ([facility]) [address] [facility] [address], [place], [address], 02/02/2024 12:07:07 01/30/20 24 01/31/2024 CBC WITH DIFFE RENTI AL/PL ATELE T basos 1 % not estab. Not Available [facility] ([facility]) [address] [facility] [address], [place], [address], 02/02/2024 12:07:07 01/30/20 24 01/31/2024 CBC WITH DIFFE RENTI AL/PL ATELE T immature cells ASBESTOS REMOVAL WORKER Not Available [facility] ([facility]) [address], [place], [address], 02/02/2024 12:07:07 01/30/20 24 01/31/2024 CBC WITH DIFFE RENTI AL/PL ATELE T neutrophils (absolute) 3.2 x10e3 /uL 1.4-7. 0 Not Available [facility] ([facility]) [address], [place], [address], 02/02/2024 12:07:07 01/30/20 24 01/31/2024 CBC WITH DIFFE RENTI AL/PL ATELE T lymphs (absolute) 2.2 x10e3 /uL 0.7-3. 1 Not Available [facility] ([facility]) [address] [place], [address], 02/02/2024 12:07:07 01/30/20 24 01/31/2024 CBC WITH DIFFE RENTI AL/PL ATELE T monocytes(ab solute) 0.6 x10e3 /uL 0.1-0. 9 Not Available [facility] ([facility]) [address] [place], [address], 02/02/2024 12:07:07 01/30/20 24 01/31/2024 CBC WITH DIFFE RENTI AL/PL ATELE T eos (absolute) 0.2 x10e3 /uL 0.0-0. 4 Not Available [facility] ([facility]) [address] [facility] [address], [place], [address], 02/02/2024 12:07:07 01/30/20 24 01/31/2024 CBC WITH DIFFE RENTI AL/PL ATELE T baso (absolute) 0.1 x10e3 /uL 0.0-0. 2 Not Available [facility] ([facility]) [address] [facility] [address], [place], [address], 02/02/2024 12:07:07 01/30/20 24 01/31/2024 CBC WITH DIFFE RENTI AL/PL ATELE T immature granulocytes 1 % not estab. Not Available [facility] ([facility]) [address] [facility] [address], [place], [address], 02/02/2024 12:07:07 01/30/20 24 01/31/2024 CBC WITH DIFFE RENTI AL/PL ATELE T immature grans (abs) 0.1 x10e3 /uL 0.0-0. 1 Not Available [facility] ([facility]) [address] [facility] [address], [place], [address], 02/02/2024 12:07:07 01/30/20 24 01/31/2024 CBC WITH DIFFE RENTI AL/PL ATELE T NRBC ASBESTOS REMOVAL WORKER Not Available [facility] ([facility]) [address], [place], [address], 02/02/2024 12:07:07 01/30/20 24 01/31/2024 CBC WITH DIFFE RENTI AL/PL ATELE T hematology comments: ASBESTOS REMOVAL WORKER Not Available [facility] ([facility]) [address], [place], [address], 02/02/2024 12:07:07 01/30/20 24 01/31/2024 UA/M W/RFL X DARYN VILLALOBOS specific gravity 1.023 1.005- 1.030 Not Available [facility] ([facility]) [address] [facility] [address], [place], [address], 02/02/2024 12:07:08 01/30/20 24 01/31/2024 UA/M W/RFL X CULTU RE, ROUTI NE pH 7.5 5.0-7. 5 Not Available [facility] ([facility]) [address] [place], [address], 02/02/2024 12:07:08 01/30/20 24 01/31/2024 UA/M W/RFL X CULTU RE, ROUTI NE urine-color Yellow yellow Not Available [facility]) [address] [facility] [address], [place], [address], 02/02/2024 12:07:08 01/30/20 24 01/31/2024 UA/M W/RFL X CULTU RE, ROUTI NE appearance Clear clear Not Available [facility] ([facility]) [address] [place], [address], 02/02/2024 12:07:08 01/30/20 24 01/31/2024 UA/M W/RFL X CULTU RE, ROUTI NE WBC esterase Negati ve negati ve Not Available [facility] ([facility]) [address] [place], [address], 02/02/2024 12:07:08 01/30/20 24 01/31/2024 UA/M W/RFL X CULTU RE, ROUTI NE protein Trace negati ve/tra ce Not Available [facility] ([facility]) [address] [place], [address], 02/02/2024 12:07:08 01/30/20 24 01/31/2024 UA/M W/RFL X CULTU RE, ROUTI NE glucose Negati ve negati ve Not Available [facility] ([facility]) [address] [place], [address], 02/02/2024 12:07:08 01/30/20 24 01/31/2024 UA/M W/RFL X CULTU RE, ROUTI NE ketones Negati ve negati ve Not Available [facility] ([facility]) [address] [place], [address], 02/02/2024 12:07:08 01/30/20 24 01/31/2024 UA/M W/RFL X CULTU RE, ROUTI NE occult blood Negati ve negati ve Not Available [facility] ([facility]) [address] [facility] [facility] [address], [place], [address], 02/02/2024 12:07:08 01/30/20 24 01/31/2024 UA/M W/RFL X CULTU RE, ROUTI NE bilirubin Negati ve negati ve Not Available [facility] ([facility]) [address] [facility] [address], [place], [address], 02/02/2024 12:07:08 01/30/20 24 01/31/2024 UA/M W/RFL X CULTU RE, ROUTI NE urobilinogen ,semi-qn 0.2 mg/dL 0.2-1. 0 Not Available [facility] ([facility]) [address], [place], [address], 02/02/2024 12:07:08 01/30/20 24 01/31/2024 UA/M W/RFL X CULTU RE, ROUTI NE nitrite, urine Positi ve negati ve abnormal Not Available [facility]) [address] [place], [address], 02/02/2024 12:07:08 01/30/20 24 01/31/2024 UA/M W/RFL X CULTU RE, ROUTI NE microscopic examination See below: Micro scopi c was indic ated and was perfo rmed. Not Available [facility] ([facility]) [address] [place], [address], 02/02/2024 12:07:08 01/30/20 24 01/31/2024 UA/M W/RFL X CULTU RE, ROUTI NE WBC 0-5 /hpf 0 - 5 Not Available [facility] ([facility]) [address], [place], [address], 02/02/2024 12:07:08 01/30/20 24 01/31/2024 UA/M W/RFL X CULTU RE, ROUTI NE RBC 0-2 /hpf 0 - 2 Not Available [facility] ([facility]) [address], [place], [address], 02/02/2024 12:07:08 01/30/20 24 01/31/2024 UA/M W/RFL X CULTU RE, ROUTI NE epithelial cells (non renal) 0-10 /hpf 0 - 10 Not Available [facility]) [address] [facility] [facility] [address], [place], [address], 02/02/2024 12:07:08 01/30/20 24 01/31/2024 UA/M W/RFL X CULTU RE, ROUTI NE epithelial cells (renal) ASBESTOS REMOVAL WORKER Not Available [facility]) [address], [place], [address], 02/02/2024 12:07:08 01/30/20 24 01/31/2024 UA/M W/RFL X CULTU RE, ROUTI NE casts None seen /lpf none seen Not Available [facility] ([facility]) [address] [facility] [facility] [address], [place], [address], 02/02/2024 12:07:08 01/30/20 24 01/31/2024 UA/M W/RFL X CULTU RE, ROUTI NE cast type ASBESTOS REMOVAL WORKER Not Available [facility] ([facility]) [address] [facility] [facility] [address], [place], [address], 02/02/2024 12:07:08 01/30/20 24 01/31/2024 UA/M W/RFL X CULTU RE, ROUTI NE crystals ASBESTOS REMOVAL WORKER Not Available [facility] ([facility]) [address] [facility] [facility] [address], [place], [address], 02/02/2024 12:07:08 01/30/20 24 01/31/2024 UA/M W/RFL X CULTU RE, ROUTI NE crystal type ASBESTOS REMOVAL WORKER Not Available [facility] [address], [place], [address], 02/02/2024 12:07:08 01/30/20 24 01/31/2024 UA/M W/RFL X CULTU RE, ROUTI NE mucus threads ASBESTOS REMOVAL WORKER Not Available [facility] [address] [facility], [place], [address], 02/02/2024 12:07:08 01/30/20 24 01/31/2024 UA/M W/RFL X CULTU RE, ROUTI NE bacteria Few none seen/f ew Not Available [facility] ([facility]) [address], [place], [address], 02/02/2024 12:07:08 01/30/20 24 01/31/2024 UA/M W/RFL X CULTU RE, ROUTI NE yeast ASBESTOS REMOVAL WORKER Not Available [facility] ([facility]) [address], [place], [address], 02/02/2024 12:07:08 01/30/20 24 01/31/2024 UA/M W/RFL X CULTU RE, ROUTI NE trichomonas ASBESTOS REMOVAL WORKER Not Available [facility]) [address] [facility] [facility] [address], [place], [address], 02/02/2024 12:07:08 01/30/20 24 01/31/2024 UA/M W/RFL X CULTU RE, ROUTI NE comment ASBESTOS REMOVAL WORKER Not Available [facility] ([facility]) [address] [facility] [facility] [address], [place], [address], 02/02/2024 12:07:08 01/30/20 24 01/31/2024 UA/M W/RFL X CULTU RE, ROUTI NE microscopic examination ASBESTOS REMOVAL WORKER Not Available [facility] [address], [place], [address], 02/02/2024 12:07:08 01/30/20 24 01/31/2024 UA/M W/RFL X CULTU RE, ROUTI NE urinalysis reflex Commen t This speci men has refle xed to a Urine Cultu re. Not Available [facility] ([facility]) [address] [facility] [address], [place], [address], 02/02/2024 12:07:08 01/30/20 24 02/02/2024 UA/M W/RFL X CULTU RE, ROUTI NE urine culture, routine Final report abnormal Not Available [facility] ([facility]) [address], [place], [address], 02/02/2024 12:07:08 01/30/20 24 02/02/2024 UA/M W/RFL [...] Prote us mirab ilis. Not Available [facility] ([facility]) [address], [place], [address], 02/02/2024 12:07:08 01/30/20 24 02/02/2024 UA/M W/RFL [...] thopr im/Valerio lfa S Not Available [facility] ([facility]) [address] [place], [address], 02/02/2024 12:07:08 01/30/20 24 01/31/2024 BASIC METAB OLIC PANEL (8) glucose 96 mg/dL 70-99 Not Available [facility] ([facility]) [address] [place], [address], 02/02/2024 12:07:09 01/30/20 24 01/31/2024 BASIC METAB OLIC PANEL (8) BUN 18 mg/dL 6-24 Not Available [facility] ([facility]) [address] [place], [address], 02/02/2024 12:07:09 01/30/20 24 01/31/2024 BASIC METAB OLIC PANEL (8) creatinine 0.71 mg/dL 0.57-1 .00 Not Available [facility] ([facility]) [address] [place], [address], 02/02/2024 12:07:09 01/30/20 24 01/31/2024 BASIC METAB OLIC PANEL (8) eGFR 98 mL/mi n/1.7 3 >59 Not Available [facility] ([facility]) [address] [place], [address], 02/02/2024 12:07:09 01/30/20 24 01/31/2024 BASIC METAB OLIC PANEL (8) BUN/creatini ne ratio 25 9-23 above high normal Not Available [facility] ([facility]) [address] [facility] [place], [address], 02/02/2024 12:07:09 01/30/20 24 01/31/2024 BASIC METAB OLIC PANEL (8) sodium 138 mmol/ L 134-14 4 Not Available [facility] ([facility]) [address] [facility] [place], [address], 02/02/2024 12:07:09 01/30/20 24 01/31/2024 BASIC METAB OLIC PANEL (8) potassium 4.2 mmol/ L 3.5-5. 2 Not Available [facility] ([facility]) [address] [facility] [place], [address], 02/02/2024 12:07:09 01/30/20 24 01/31/2024 BASIC METAB OLIC PANEL (8) chloride 101 mmol/ L 96-106 Not Available [facility] ([facility]) [address] [facility] [place], [address], 02/02/2024 12:07:09 01/30/20 24 01/31/2024 BASIC METAB OLIC PANEL (8) carbon dioxide, total 22 mmol/ L 20-29 Not Available [facility] ([facility]) [address] [facility] [place], [address], 02/02/2024 12:07:09 01/30/20 24 01/31/2024 BASIC METAB OLIC PANEL (8) calcium 9.9 mg/dL 8.7-10 .2 Not Available [facility] ([facility]) [address] [facility] [place], [address], 02/02/2024 12:07:09 01/30/20 24 01/31/2024 LIPID PANEL cholesterol, total 247 mg/dL 100-19 9 above high normal Not Available [facility] ([facility]) [address] [facility] [place], [address], 02/02/2024 12:07:10 01/30/20 24 01/31/2024 LIPID PANEL triglyceride s 172 mg/dL 0-149 above high normal Not Available [facility] ([facility]) [address] [place], [address], 02/02/2024 12:07:10 01/30/20 24 01/31/2024 LIPID PANEL HDL cholesterol 64 mg/dL >39 Not Available [facility] ([facility]) [address] [place], [address], 02/02/2024 12:07:10 01/30/20 24 01/31/2024 LIPID PANEL VLDL cholesterol isrrael 31 mg/dL 5-40 Not Available [facility] ([facility]) [address] [place], [address], 02/02/2024 12:07:10 01/30/20 24 01/31/2024 LIPID PANEL LDL chol calc ([facility]) 152 mg/dL 0-99 above high normal Not Available [facility] ([facility]) [address] [place], [address], 02/02/2024 12:07:10 01/30/20 24 01/31/2024 LIPID PANEL LDL calc comment: ASBESTOS REMOVAL WORKER Not Available [facility] ([facility]) [address] [place], [address], 02/02/2024 12:07:10 01/30/20 24 01/31/2024 HCV ANTIB MUMTAZ RFX TO QUANT PCR HCV Ab Non Reacti ve non reacti ve Not Available [facility] ([facility]) [address] [place], [address], 02/02/2024 12:07:10 01/30/20 24 01/31/2024 HCV ANTIB MUMTAZ RFX TO QUANT PCR interpretati on: Commen t Not infec peggy with HCV unles s early or acute infec tion is suspe cted (whic h may be delay ed in an immun ocomp romis ed indiv idual ), or other evide nce exist s to indic ate HCV infec tion. Not Available [facility] ([facility]) [address] [place], [address], 02/02/2024 12:07:10 01/30/20 24 01/31/2024 HEMOG LOBIN A1C hemoglobin A1C 5.7 % 4.8-5. 6 above high normal Predi abete s: 5.7 - 6.4 Diabe joceline: >6.4 Glyce reuben contr ol for adult s with diabe joceline: <7.0 Not Available [facility] ([facility]) [address] [place], [address], 02/02/2024 12:07:11 01/30/20 24 01/31/2024 HIV AB/P2 4 AG WITH REFLE X HIV Ab/P24 Ag screen Non Reacti ve non reacti ve HIV-1 /HIV- 2 antib odies and HIV-1 p24 antig en were NOT detec peggy. There is no labor atory evide nce of HIV infec tion. HIV Negat janie Not Available [facility] ([facility]) [address] [facility], [place], [address], 02/02/2024 12:07:11 01/30/20 24 01/31/2024 TSH RFX ON ABNOR MAL TO FREE T4 TSH 2.160 uIU/m L 0.450- 4.500 Not Available [facility] ([facility]) [address] [place], [address], 02/02/2024 12:07:12 01/30/20 24 01/31/2024 ALT (SGPT ) ALT (SGPT) 32 IU/L 0-32 Not Available [facility] ([facility]) [address] [place], [address], 02/02/2024 12:07:13 09/05/19 25 09/06/2024 RHEUM ATOID FACTO R (RF) rheumatoid factor (rf) 13.6 IU/mL <14.0 normal Not Available [facility]) [address] [facility], [place], [address], 09/06/2024 20:06:19 09/05/19 25 09/06/2024 VITAM IN [...] 1. IOM (Inst itute of Medic ine). 2009. Phil ry refer ence intak es for calci um and D. Christina ontiveros [place]: The Natio nal [facility] Press . 2. Obi zaldivar [place], Karissa toure [place], Jasper off-F errar i ALAN, et al. Evalu ation , treat ment, and preve ntion of vitam in D defic iency : an Endoc rine Socie ty clini isrrael pract ice guide line. JCEM. 2010; 96(7) :1911 -30. Not Available [facility] ([facility]) [address] [facility], [place], [address], 09/06/2024 20:06:20 09/05/19 25 09/06/2024 ANTI- CCP AB, IGG/I GA anti-ccp Ab, IgG/IgA 2 units 0-19 Negat janie <20 Weak posit janie 20 - 39 Moder ate posit janie 40 - 59 Stron g posit janie >59 Not Available [facility] ([facility]) [address] [facility], [place], [address], 09/06/2024 20:06:21 09/05/19 25 09/06/2024 ANTIN UCLEA R AB MULTI PLEX RFX 9 TAWANA direct Negati ve negati ve Not Available [facility] ([facility]) [address] [place], [address], 09/06/2024 20:06:21 10/02/19 25 10/03/2024 CBC WITH DIFFE RENTI AL/PL ATELE T WBC 7.2 x10e3 /uL 3.4-10 .8 normal Not Available [facility] ([facility]) [address] [place], [address], 10/03/2024 08:07:57 10/02/19 25 10/03/2024 CBC WITH DIFFE RENTI AL/PL ATELE T RBC 4.61 x10e6 /uL 3.77-5 .28 normal Not Available [facility] ([facility]) [address] [place], [address], 10/03/2024 08:07:57 10/02/19 25 10/03/2024 CBC WITH DIFFE RENTI AL/PL ATELE T hemoglobin 14.0 g/dL 11.1-1 5.9 normal Not Available [facility] ([facility]) [address] [place], [address], 10/03/2024 08:07:57 10/02/19 25 10/03/2024 CBC WITH DIFFE RENTI AL/PL ATELE T hematocrit 43.8 % 34.0-4 6.6 normal Not Available [facility] ([facility]) [address] [place], [address], 10/03/2024 08:07:57 10/02/19 25 10/03/2024 CBC WITH DIFFE RENTI AL/PL ATELE T MCV 95 fL 79-97 normal Not Available [facility] ([facility]) [address] [place], [address], 10/03/2024 08:07:57 10/02/19 25 10/03/2024 CBC WITH DIFFE RENTI AL/PL ATELE T MCH 30.4 pg 26.6-3 3.0 normal Not Available [facility] ([facility]) [address] [facility], [place], [address], 10/03/2024 08:07:57 10/02/19 25 10/03/2024 CBC WITH DIFFE RENTI AL/PL ATELE T MCHC 32.0 g/dL 31.5-3 5.7 normal Not Available [facility] ([facility]) [address] [facility], [place], [address], 10/03/2024 08:07:57 10/02/19 25 10/03/2024 CBC WITH DIFFE RENTI AL/PL ATELE T RDW 14.9 % 11.7-1 5.4 Not Available [facility] ([facility]) [address] [facility], [place], [address], 10/03/2024 08:07:57 10/02/19 25 10/03/2024 CBC WITH DIFFE RENTI AL/PL ATELE T platelets 374 x10e3 /uL 150-45 0 normal Not Available [facility] ([facility]) [address] [facility], [place], [address], 10/03/2024 08:07:57 10/02/19 25 10/03/2024 CBC WITH DIFFE RENTI AL/PL ATELE T neutrophils 48 % not estab. normal Not Available [facility] ([facility]) [address] [facility], [place], [address], 10/03/2024 08:07:57 10/02/19 25 10/03/2024 CBC WITH DIFFE RENTI AL/PL ATELE T lymphs 38 % not estab. normal Not Available [facility] ([facility]) [address] [facility], [place], [address], 10/03/2024 08:07:57 10/02/19 25 10/03/2024 CBC WITH DIFFE RENTI AL/PL ATELE T monocytes 10 % not estab. normal Not Available [facility] ([facility]) [address] [place], [address], 10/03/2024 08:07:57 10/02/19 25 10/03/2024 CBC WITH DIFFE RENTI AL/PL ATELE T eos 2 % not estab. normal Not Available [facility] ([facility]) [address] [place], [address], 10/03/2024 08:07:57 10/02/19 25 10/03/2024 CBC WITH DIFFE RENTI AL/PL ATELE T basos 1 % not estab. 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 0 normal Not Available [facility] ([facility]) [address] [place], [address], 10/03/2024 08:07:57 10/02/19 25 10/03/2024 CBC WITH DIFFE RENTI AL/PL ATELE T lymphs (absolute) 2.7 x10e3 /uL 0.7-3. 1 normal Not Available [facility] ([facility]) [address] [place], [address], 10/03/2024 08:07:57 10/02/19 25 10/03/2024 CBC WITH DIFFE RENTI AL/PL ATELE T monocytes(ab solute) 0.7 x10e3 /uL 0.1-0. 9 normal Not Available [facility] ([facility]) [address] [facility], [place], [address], 10/03/2024 08:07:57 10/02/19 25 10/03/2024 CBC WITH DIFFE RENTI AL/PL ATELE T eos (absolute) 0.2 x10e3 /uL 0.0-0. 4 normal Not Available [facility] ([facility]) [address] [facility], [place], [address], 10/03/2024 08:07:57 10/02/19 25 10/03/2024 CBC WITH DIFFE RENTI AL/PL ATELE T baso (absolute) 0.1 x10e3 /uL 0.0-0. 2 normal Not Available [facility] ([facility]) [address] [place], [address], 10/03/2024 08:07:57 10/02/19 25 10/03/2024 CBC WITH DIFFE RENTI AL/PL ATELE T immature granulocytes 1 % not estab. Not Available [facility] ([facility]) [address] [place], [address], 10/03/2024 08:07:57 10/02/19 25 10/03/2024 CBC WITH DIFFE RENTI AL/PL ATELE T immature grans (abs) 0.0 x10e3 /uL 0.0-0. 1 Not Available [facility] ([facility]) [address] [place], [address], 10/03/2024 08:07:57 10/02/19 25 10/03/2024 CBC WITH DIFFE RENTI AL/PL ATELE T NRBC ASBESTOS REMOVAL WORKER Not Available [facility] ([facility]) [address] [place], [address], 10/03/2024 08:07:57 10/02/19 25 10/03/2024 CBC WITH DIFFE RENTI AL/PL LUX [facility] hematology comments: ASBESTOS REMOVAL WORKER Not Available [facility]) [address] [place], [address], 10/03/2024 08:07:57 10/02/19 25 10/03/2024 BASIC METAB OLIC PANEL (8) glucose 113 mg/dL 70-99 above high normal Not Available [facility] ([facility]) [address] [place], [address], 10/03/2024 08:07:58 10/02/19 25 10/03/2024 BASIC METAB OLIC PANEL (8) BUN 19 mg/dL 8-27 normal Not Available [facility] ([facility]) [address] [place], [address], 10/03/2024 08:07:58 10/02/19 25 10/03/2024 BASIC METAB OLIC PANEL (8) creatinine 0.73 mg/dL 0.57-1 .00 normal Not Available [facility] ([facility]) [address] [place], [address], 10/03/2024 08:07:58 10/02/19 25 10/03/2024 BASIC METAB OLIC PANEL (8) eGFR 94 mL/mi n/1.7 3 >59 normal Not Available [facility] ([facility]) [address] [place], [address], 10/03/2024 08:07:58 10/02/19 25 10/03/2024 BASIC METAB OLIC PANEL (8) BUN/creatini ne ratio 26 12-28 normal Not Available [facility] ([facility]) [address] [place], [address], 10/03/2024 08:07:58 10/02/19 25 10/03/2024 BASIC METAB OLIC PANEL (8) sodium 137 mmol/ L 134-14 4 normal Not Available [facility] ([facility]) [address] [place], [address], 10/03/2024 08:07:58 10/02/19 25 10/03/2024 BASIC METAB OLIC PANEL (8) potassium 4.4 mmol/ L 3.5-5. 2 normal Not Available [facility] ([facility]) [address] [place], [address], 10/03/2024 08:07:58 10/02/19 25 10/03/2024 BASIC METAB OLIC PANEL (8) chloride 100 mmol/ L 96-106 normal Not Available [facility] ([facility]) [address] [place], [address], 10/03/2024 08:07:58 10/02/19 25 10/03/2024 BASIC METAB OLIC PANEL (8) carbon dioxide, total 25 mmol/ L 20-29 normal Not Available [facility] ([facility]) [address] [place], [address], 10/03/2024 08:07:58 10/02/19 25 10/03/2024 BASIC METAB OLIC PANEL (8) calcium 10.4 mg/dL 8.7-10 .3 above high normal Not Available [facility] ([facility]) [address] [place], [address], 10/03/2024 08:07:58 10/02/19 25 10/03/2024 LIPID PANEL cholesterol, total 228 mg/dL 100-19 9 above high normal Not Available [facility] ([facility]) [address] [place], [address], 10/03/2024 08:07:59 10/02/19 25 10/03/2024 LIPID PANEL triglyceride s 125 mg/dL 0-149 normal Not Available [facility] ([facility]) [address] [place], [address], 10/03/2024 08:07:59 10/02/19 25 10/03/2024 LIPID PANEL HDL cholesterol 78 mg/dL >39 normal Not Available [facility] ([facility]) [address] [place], [address], 10/03/2024 08:07:59 10/02/19 25 10/03/2024 LIPID PANEL VLDL cholesterol isrrael 22 mg/dL 5-40 Not Available [facility] ([facility]) [address] [place], [address], 10/03/2024 08:07:59 10/02/19 25 10/03/2024 LIPID PANEL LDL chol calc ([facility]) 128 mg/dL 0-99 above high normal Not Available [facility] ([facility]) [address] [place], [address], 10/03/2024 08:07:59 10/02/19 25 10/03/2024 LIPID PANEL LDL calc comment: ASBESTOS REMOVAL WORKER Not Available [facility] ([facility]) [address] [place], [address], 10/03/2024 08:07:59 10/02/19 25 10/03/2024 HEMOG LOBIN A1C hemoglobin A1C 5.9 % 4.8-5. 6 above high normal Predi abete s: 5.7 - 6.4 Diabe joceline: >6.4 Glyce reuben contr ol for adult s with diabe joceline: <7.0 Not Available [facility] ([facility]) [address] [place], [address], 10/03/2024 08:07:59 10/02/19 25 10/03/2024 TSH RFX ON ABNOR MAL TO FREE T4 TSH 1.700 uIU/m L 0.450- 4.500 normal Not Available [facility] ([facility]) [address] [place], [address], 10/03/2024 08:08:00 10/02/19 25 10/04/2024 HEPAT IC FUNCT ION PANEL (7) protein, total 7.7 g/dL 6.0-8. 5 normal Not Available [facility] ([facility]) [address] [facility] [place], [address], 10/04/2024 08:07:35 10/02/19 25 10/04/2024 HEPAT IC FUNCT ION PANEL (7) albumin 4.4 g/dL 3.8-4. 9 normal Not Available [facility] ([facility]) [address] [facility] [place], [address], 10/04/2024 08:07:35 10/02/19 25 10/04/2024 HEPAT IC FUNCT ION PANEL (7) bilirubin, total 0.3 mg/dL 0.0-1. 2 normal Not Available [facility] ([facility]) [address] [place], [address], 10/04/2024 08:07:35 10/02/19 25 10/04/2024 HEPAT IC FUNCT ION PANEL (7) bilirubin, direct 0.11 mg/dL 0.00-0 .40 normal Not Available [facility] ([facility]) [address] [facility] [place], [address], 10/04/2024 08:07:35 10/02/19 25 10/04/2024 HEPAT IC FUNCT ION PANEL (7) alkaline phosphatase 101 IU/L 44-121 normal Not Available [facility]) [address] [facility] [place], [address], 10/04/2024 08:07:35 10/02/19 25 10/04/2024 HEPAT IC FUNCT ION PANEL (7) AST (SGOT) 26 IU/L 0-40 normal Not Available [facility] ([facility]) [address] [facility] [place], [address], 10/04/2024 08:07:35 10/02/19 25 10/04/2024 HEPAT IC FUNCT ION PANEL (7) ALT (SGPT) 37 IU/L 0-32 above high normal Not Available [facility] ([facility]) [address] [facility], [place], [address], 10/04/2024 08:07:35 10/02/19 25 10/03/2024 WRITT EN AUTHO RIZAT ION written authorizatio n Commen t Writt en Autho rizat ion Recei mary. Autho rizat ion recei mary from [employer] Ko for Corona Mike on 10-03 Logge d by Fredi Huggins Not Available [facility] ([facility]) [address] [facility], [place], [address], 10/04/2024 08:07:35 04/22/20 23 04/22/2023 CT, angio gram, chest , w/ contr ast No observ ation record ed. [facility] (Emergency Room) [address], [place], [address], 04/23/2023 11:59:14 05/02/20 23 04/28/2023 XR, ribs, unila teral , 3 or more view No observ ation record ed. [facility] [place] [address] [address], [place], [address], 05/02/2023 08:23:44 05/02/20 23 04/28/2023 XR, ribs, unila teral , w/ PA chest No observ ation record ed. KAROLINA [facility] [place] [address] [address], [place], [address], 05/02/2023 11:59:59 05/02/20 23 04/28/2023 XR, ribs, unila teral , 3 or more view No observ ation record ed. [facility] [place] [address], [address], 05/02/2023 08:23:44 01/23/20 24 01/23/2024 XR, thora cic spine , 2 view No observ ation record ed. KAROLINA [facility] [place] [address], [place], [address], 01/24/2024 10:17:52 03/28/20 24 03/28/2024 US, osmani t, limit ed PROCED URE: MM Digita [...] y. FINDIN GS: In the upper outer group supervisor yard ior right breast there is an oval [...] Lay letter mailed to gabby t WSN: [id number] Orderi ng Physic umm: Volodymyr Del Valle ie Dictat ed By: Nahum Post MD Dictat ed Date/T aminata: 4:31 pm Review ed By: Nahum Post MD Signed By: Nahum Post MD Signed Date/T aminata: 4:31 pm Transc ribed By: CSB Transc ribed Date/T aminata: 4:11 pm Patijese t Class: Outpat ient [facility] (Outpt Imaging) [address] [place] [address], [place], [address], 04/08/2024 08:02:11 03/28/2003/28/2024 mm digit al mammo bilat eral PROCED [...] y. FINDIN GS: In the upper outer group supervisor yard ior right breast there is an oval [...] with the mass seen on mammog ivette. Gabby hany direct ed real-t aminata high-r esolut ion [...] Lay letter mailed to gabby leach WSN: [id number] Orderi alfredo Physic umm: Volodymyr Del Valle Dictat ed By: Nahum Post MD Dictat ed Date/T aminata: 4:31 pm Review ed By: Nahum Post MD Signed By: Nahum Post MD Signed Date/T aminata: 4:31 pm Transc ribed By: CSB Transc riptio n Date/T aminata: 4:11 pm Birads : Gabby leach Class: Outpat ient [address] [place] [address] (Outpt Imaging) [address] [place], [address], 04/08/2024 08:01:56 08/28/19 25 08/27/2024 bone densi ty No observ ation record ed. [facility] [address] [place] [address] [place], [address], 08/28/2024 12:39:56 02/05/20 25 02/04/2025 imagi ng/cristofer driver t No observ ation record ed. [address] (Medical Records) [address] [place], [address], 02/04/2025 18:54:54 02/05/20 25 02/04/2025 imagi ng/di agnos tic resul t No observ ation record ed. [address] (Medical Records) [address] [place], [address], 02/04/2025 18:55:35 02/05/20 25 02/04/2025 imagi ng/di agnos tic resul t No observ ation record ed. [address] (Medical Records) [address] [place], [address], 02/04/2025 18:55:24 Result Notes None recorded. Problems Name Problem SNOMED Code Status Onset Date Resolution Date Notes Provider Name and Address Organization Details Recorded Time Hypertens janie disorder 90463139 Active 2022 Not Available [facility] 3 08:42:01 Muscle spasm of cervical muscle of neck 59955332607 4 Active 2022 Not Available [facility] 3 08:42:00 Genital herpes simplex 20553944 Completed 202211/05/2022 ANGIE GUADALUPE MD [address] [facility] [address], [facility] [place], [address] , [facility] 3 14:41:11 Anxiety 03378948 Active 2022 Not Available [facility] 3 08:42:01 Mild intermitt ent asthma 545274839 Active 2022 Not Available [facility] 3 08:42:01 Allergic rhinitis 69607983 Active 2022 Not Available [facility] 3 08:42:01 History of urinary tract infection 61483640487 07 Active 2022 Not Available [facility] 3 08:42:00 Hyperlipi demia 87847515 Active 2022 Not Available [facility] 3 08:42:01 Depressiv e disorder 62631328 Active 2022 Not Available [facility] 3 08:42:01 Headache 82548081 Completed 202211/04/2022 tensio n-type ANGIE GUADALUPE MD [address], [place], [address] , [facility] 3 09:16:34 Vitamin D deficienc y 75982168 Active 2022 Not Available [facility] 3 08:42:00 History of SARS-CoV- 2 52467379621 2272212 Completed 202211/04/2022 ANGIE GUADALUPE MD [address], [place], [address] , [facility] 3 09:17:06 Urinary incontine nce 694924321 Completed 202211/04/2022 ANGIE GUADALUPE MD [address], [place], [address] , [facility] 3 09:18:47 Genital herpes simplex 69348197 Active 2022 Not Available [facility] 3 08:42:00 Prediabet es 551332284 Active 2023 ANGIE GUADALUPE MD [address], [place], [address] , [facility] 4 19:33:50 Osteopeni a 876989241 Active 2024 ANGIE GUADALUPE MD [address], [place], [address] , [facility] 5 10:33:54 Problem Notes None recorded. Procedures Surgical History Date Name Laterality Status Provider Name and Address Organization Details Recorded Time 05/20/20 24 Colonoscopy completed Hodan Krishnan [facility] 05/20/2024 13:39:27 06/13/20 23 lumbar epidural steroid injection completed Hodan Krishnan [facility] 06/13/2023 13:16:15 12/16/19 22 Most Recent Mammogram completed Hodan Krishnan [facility] 11/07/2022 15:38:04 10/11/19 22 hysterectomy completed Singh Manning [place] [facility] 11/04/2022 08:29:10 05/22/19 84 section completed Singh Manning MA [facility] 11/04/2022 08:28:58 08/14/18 81 Appendectomy completed Singh Manning [place] [facility] 11/04/2022 08:29:26 abdominoplasty completed ANGIE GUADALUPE MD [address] [address], [place], [address], [facility] 11/04/2022 08:45:22 Imaging Results None recorded. Procedure Notes None recorded. Medical Equipment None Reported. Allergies Allergen ID Allergen Name Allergen Category Reaction Reaction Severity Criticality Documentation Date Start Date Code Code System Note Provider Name and Address Organization Details Recorded Time 41675 aspirin medicatio n angioedem a Not available Not available 11/04/20222022 1191 [facility] 3 14:17:56 39264 Non-stero idal anti-infl ammatory agent (product) medicatio n angioedem a Not available Not available 11/04/20222022 28123 005 [facility] 3 14:17:56 91753 crab allergeni c extract food itching Not available Not available 11/04/20222022 07532 0 [facility] 3 14:17:56 68528 Medicinal product containin g cephalosp fanta and acting as antibacte rial agent (product) medicatio n Not available Not available Not available 11/04/2022 12066 9009 [facility] 3 14:17:56 Medications Name Sig Start Date Stop [...] Available Not Available celecoxib 200 mg capsule TAKE 1 CAPSULE ORAL TWICE A DAY, NEEDED FOR 30 DAYS active Not Available Not Available No t Available amoxicilli n 500 mg capsule TOME 2 [...] 32 mg-hydroch lorothiazi de 12.5 mg tablet TOME 1 TABLETA POR V A ORAL TODOS LOS D active Not Available Not Available No t Available clindamyci n HCl 300 mg capsule TAKE [...] mg tablet TOME EMILY TABLETA INMEDIAT AMENTE NICKI INDICADO 01/22 completed Not Available Not Available [...] DAY BY MOUTH DIRECTED FOR 7 DAYS. 01/23 completed Not Available Not Available Not Available amlodipine 5 mg tablet TOME EMILY [...] mg/2 mL suspension for nebulizati on USAR EMILY AMPOLLET A PARA TERAPIA RESPIRAT ORIA DOS VECES AL PACO 11/04 completed Not Available Not Available Not Available esterified estrogens- methyltest osterone 1.25 mg-2.5 mg tablet TOME EMILY TABLETA POR V A ORAL TODOS LOS D active Not Available Not Available No t Available montelukas t 10 mg tablet TOME 1 TABLETA POR VIA ORAL TODOS LOS HAYNES 2024 active Not Available Not Available Not Avai lable fluticason e propionate 220 mcg/actuat ion HFA aerosol inhaler Inhale by inhalati on route for 60 days. active Not Available Not Available No t Available azelastine 137 mcg (0.1 %) nasal spray TAKE 2 SPRAYS INTRANAS ALLY 2 TIMES A DAY FOR 30 DAYS. ADMINIST ER INTO EACH NOSTRIL active Not Available Not Available No t Available metformin ER 500 mg tablet,ext ended release 24 hr TOME 1 TABLETA POR V A ORAL TODOS LOS D DIRECTED FOR 90 DAYS, FOR DIABETES . active Not Available Not Available No [...] 300 mg 24 hr tablet, extended release TOME 1 TABLETA POR VIA ORAL TODOS LOS HAYNES active Not Available Not Available No t Available nitrofuran toin monohydrat e/macrocry stals 100 mg capsule TOME EMILY C PSULA TODOS LOS D 07/01 completed Not Available Not Available Not Available Janumet 50 mg-1,000 mg tablet 11/04 completed Not Available Not Available Not Available budesonide -formotero l HFA 160 mcg-4.5 mcg/actuat ion aerosol inhaler INHALE DANDO DOS SOPLIDOS INTO THE LUNGS DOS VECES AL PACO NICKI LO INDICADO FOR 30 DAYS 2024 active Not Available Not Available Not Avai lable cholecalci ferol (vitamin D3) 1,250 mcg (50,000 unit) capsule TOME 1 CAPSULA POR VIA ORAL EMILY VEZ POR SEMANA FOR 90 DAYS active Not Available Not Available No [...] Not Available Not Available No t Available ivermectin 1 % topical cream APPLY TO FACE TODOS LOS D AL ACOSTZNAE E active Not Available Not Available No t Available Rhofade 1 % topical cream APLIQUE A LA ROCIO CADA MA TAWANA active Not Available Not Available No t [...] Updated DateTime 5 168.91 cm 31.3 kg/m2 19961.7 g 76 /min 98 % 98 % 97.6 [degF] 133 mm[Hg] 81 mm[Hg] Verito Lemon MA [facility] 5 09:04:58 Date Recorded Systolic blood pressure Diastolic blood pressure Provider Name and Address Organization Details Last Updated DateTime 01/23/2024 142 mm[Hg] 100 mm[Hg] ANGIE GUADALUPE MD [address] [address], [place], [address], [facility] 01/23/2024 10:12:36 Date Recorded Body height Body mass index (BMI) Body weight Heart rate Oxygen saturation Oxygen saturation in Arterial blood by Pulse oximetry Body temperature Provider Name and Address Organization Details Last Updated DateTime 4 168.91 cm 31.2 kg/m2 57587.5 g 80 /min 99 % 99 % 98 [degF] Gloria Barr MA [facility] 4 09:55:13 Date Recorded Body height Body mass index (BMI) Body weight Heart rate Oxygen saturation Oxygen saturation in Arterial blood by Pulse oximetry Body temperature Systolic blood pressure Diastolic blood pressure Provider Name and Address Organization Details Last Updated DateTime 5 168.91 cm 29.9 kg/m2 68966.3 7 g 83 /min 95 % 95 % 98.2 [degF] 122 mm[Hg] 73 mm[Hg] Verito Lemon MA [facility] 5 15:01:28 Date Recorded Body height Body mass index (BMI) Body weight Oxygen saturation Oxygen saturation in Arterial blood by Pulse oximetry Heart rate Body temperature Systolic blood pressure Diastolic blood pressure Provider Name and Address Organization Details Last Updated DateTime 3 168.91 cm 29.1 kg/m2 83969.1 g 98 % 98 % 92 /min 98 [degF] 136 mm[Hg] 81 mm[Hg] Rosemary Weaver MA [facility] 3 14:17:36 Date Recorded Body height Body mass index (BMI) Body weight Oxygen saturation Oxygen saturation in Arterial blood by Pulse oximetry Heart rate Body temperature Systolic blood pressure Diastolic blood pressure Provider Name and Address Organization Details Last Updated DateTime 4 168.91 cm 30.7 kg/m2 36645.0 3 g 98 % 98 % 84 /min 98 [degF] 128 mm[Hg] 84 mm[Hg] Rosemary Weaver MA [facility] 4 11:11:28 Social History Question Answer Notes LastModified by Organizat ion Details LastModified Time Tobacco Smoking Status Former Smoker 3-4 years in college, 1 pack daily RAVINDER Cruz, [facility] 11/04/2022 08:28:19 What Type Of Diet Are You Following? REGULAR Information not available 11/04/2022 When Did You Quit Smoking? 16+yearssinc elastcigaret te Information not available 11/04/2022 How Many Years Have You Smoked Tobacco? 4 Information not available 11/04/2022 Sex: Unknown Functional Status Question Answer Note LastModified by Organizat ion Details LastModified Time Do you use any illicit or recreational drugs? No Information not available 11/04/2022 Do you or have you ever used any other forms of tobacco or nicotine? No Information not available 11/04/2022 What is your level of alcohol consumption? Occasional Information not available 11/04/2022 Are you currently employed? Yes Information not available 11/04/2022 Are you able to walk? YESWOREST Information [...] Immunizations Vaccine Type Date Status Note Provider Kavon ge and Address Organization Details Recorded Time pneumococcal polysaccharide PPV23 2 completed RAVINDER Enciso [facility] 04/28/2023 14:12:01 zoster recombinant 4 completed RAVINDER Kirk [facility] 01/23/2024 09:49:33 zoster recombinant 3 completed RAVINDER Kirk [facility] 01/23/2024 09:49:33 COVID-19, mRNA, LNP-S, PF, 30 mcg/0.3 mL dose 1 completed RAVINDER Kirk [facility] 01/23/2024 09:49:33 COVID-19, mRNA, LNP-S, PF, 30 mcg/0.3 mL dose 1 completed RAVINDER Kirk [facility] 01/23/2024 09:49:33 COVID-19, mRNA, LNP-S, PF, 50 mcg/0.5 mL 3 completed RAVINDER Kirk [facility] 01/23/2024 09:49:33 Influenza, split virus, quadrivalent, PF 3 completed RAVNIDER Kirk [facility] 01/23/2024 09:49:33 Past Encounters Encounter ID Performer Location Encounter Start Date Encounter Closed Date Diagnosis/Indication Diagnosis SNOMED-CT Code Diagnosis ICD10 Code Diagnosis Note [id number] ANGIE GUADALUPE MD Main Office [address] [place] [address] 11/04/2022 08:04:42 11/04/2022 09:11:48 Adult health examination [id number] Z00.00 Health Maintenanc e FemaleA) Patient was [...] nfluenza: not this yearTdAP:Z no: due at 74NFB46: due at 36OILC12: due at 49TSN85:PC V15:COVID: D) Routine blood work performed on 11/01/22, reviewedE) Updated patient's history RTC in one year for annual exam or sooner if any acute complaints Screening for malignant neoplasm of breast 405578302 Z12.39 - to be done on 01/03 Screening for malignant neoplasm of cervix 565710090 Z12.4 - pt did have a pap smear this year- referred to continued [facility] Screening for malignant neoplasm of colon 960979497 Z12.11 - pt is due to for a colonoscop y, last was one was done in [place]- recent FOBT was negative Patient ne w to provider [id number] 12332 Z76.89 - pt provided records to patient, will need to be scanned into the chart Hepatitis C screening 41 3038235 Z11.59 Low back pain 789731369 M54.51 - chronic- pt referred to specialist as her request- refused physical therapy- currently on celecoxib as needed for the pain Hypertensive disorder 38 662831 I10 - BP today 155/90 and 160/90 [...] ankles. >Have trouble with your vision. Hyperlipidemia 19451626 E78.5 - recent lipid profile: cholestero l-202, [...] levels. - Eat more fruits and veggies. [id number] ANGIE GUADALUPE MD Main Office [address] [place] [address] 04/28/2023 14:09:22 04/28/2023 14:44:36 Rib pain 680589679 R07.81 - based on patient clinical exam [...] of care from emergency department to self-care [id number] 22842 Z76.89 - pt brought ED paper work which was reviewed [id number] ANGIE GUADALUPE MD Main Office [address] [facility] [place] [address] 01/23/2024 09:30:09 01/23/2024 10:20:53 Adult health examination 941116151 Z00.00 Health Maintenanc e FemaleA) Patient was counseled on healthy diet, exercise and nutrition due to BMI of 31.2 B) ScreeningL ast Mammogram: start at age 50 stop at 73Date: 2Re sult: BIRADS-2Ne xt: ordered diagnostic mammogram as [...] Vaccines:I nfluenza: 07/24/2023 TdAP:Zoste r: 07/24/2023 , 4P CV13: due at 37KANS92: 07/04/2022 PCV20:PCV1 5:COVID: 11/22/2020, 06/19/2021, 07/24/2023 D) Routine blood work orderedE) Updated patient's history RTC in one year for annual exam or sooner if any acute complaints Hyperlipidemia 72143549 E78.5 - recent lipid profile: cholestero l-202, [...] more fruits and veggies. Hypertensive disorder 38 600340 I10 - elevated- BP today manually was [...] ve trouble with your vision. Allergic rhinitis 239196 04 J30.9 - with associated asthma- c/w azelestine -flonase spray -> she gets this in [place] Anxiety 82303339 F41.9 - JAIME-7 score of 8- c/w bupropion ER 300mg QD- counsellin g provided Depressive disorder 3548 9007 F32.A - PHQ-9 score of 2- c/w bupropion ER 300mg QD- denies SI/HI- counsellin g provided History of urinary tract infection 9793643190 107 Z87.440 - pt was referred to urology has not yet gone, pt was provided with a new referral however for her to schedule- ordered UA with urine culture- pt does take macrobid after intercours e Mild inter mittent asthma 563467593 J45.20 - c/w albuterol as needed- c/w flovent HFA 220mcg- c/w singular 10mg QD Screening for malignant neoplasm of cervix 799757489 Z12.4 - pt did have a pap smear this year- referred to [facility] Screening for malignant neoplasm of colon 616339114 Z12.11 - pt is due to for a colonoscop y, last was one was done in [place]- recent FOBT was negative- pt is due to for colonscopy , ordered Low back pain 170102583 M54.51 - chronic- pt also has neck pain and now thoracic area- pt referred to specialist as her request -> pt is following with physiatry- refused physical therapy- currently on celecoxib as needed for the pain- ordered x-ray of the thoracic spine for further evaluation - pt was advised to discuss her concern with her specialist as well Pain of left breast 1010 795948 N64.4 - has been on-going for three months- pt last screening mammogram was in 2021- ordered diagnostic mammogram and U/S of the left breast for further evaluation Skin lesion 79544252 L98 .9 - pt has several skin lesion, should get annual skin check- pt referred to derm Impaired f asting glycemia 555514032 R73.01 - will check HbA1c- pt is currently taking metformin 500mg QD Thoracic back pain 44316 8004 M54.6 - please see above at back pain Fatigue 97638719 R53.83 Z00.00 Hepatitis C screening 41 4854041 Z11.59 HIV screening 674493888 Z11.4 [id number] ANGIE GUADALUPE MD Main Office [address] [facility] [address] [facility] [place] [address] 07/01/2024 10:53:24 07/01/2024 11:32:46 History of urinary tract infection 0515328667 107 Z87.440 - pt was seen by urology on 04/2024- was given ppx however pt not complaint with medication (methenami ne)- for imaging Low back pain 640202860 M54.50 - chronic- pt also has neck pain and now thoracic area- c/w physiatry- refused physical therapy- currently on celecoxib as needed for the pain- pt was advised to discuss her concern with her specialist as well Screening for malignant neoplasm of cervix 206940824 Z12.4 - pt did have a pap smear this year- referred to [facility] Bone density finding 385 118648 M85.89 Osteoarthr osis of the carpometacarpal joint of the thumb 38894766 M18.9 - pt has been getting steroid injection in the location, right side- advised to follow with physiatry Hypertensive disorder 38 573802 I10 - at goal- BP today manually [...] ankles.>Alan ve trouble with your vision. Prediabetes 108291753 R7 3.03 - HbA1c was 6.7 done in 01/2024- pt was started on metformin by previous PCP, she is not always compliant with this Fatigue 20395726 R53.83 Z00.00 Hyperlipidemia 79016762 E78.5 Z00.00 FASTING Mild inter mittent asthma 626360442 J45.20 - c/w albuterol as needed- c/w flovent HFA 220mcg- c/w singular 10mg QD- meds refilled [id number] Javed Sanders MD Main Office [address] [facility] [address] [facility] [place] [address] 09/05/2024 08:50:33 09/05/2024 09:23:50 Vitamin D deficiency 68390002 E55.9 -takes daily vitamin D supplement s provided by another provider when she is in [place]-will check vitamin D levels Osteoarthr osis of the carpometacarpal joint of the thumb 36571259 M18.9 - pt has been getting steroid injection in the location, right side>appro x. every 4-5 months- follows with physiatry Family his tory of Rheumatoid arthritis 353803769 Z82.61 -pt requests blood work for RA as she has a family hx of RA-was advised by physiatry- endorses multiple joint pain in bilateral hands and wrists Exacerbati on of mild persistent asthma 519235962 J45.31 hx of asthma-use s her albuterol inhaler; with minimal to no relief-end orses coughing fits, wheezing, and difficulty sleeping due to asthma exacerbati ons-reques ts referral to pulmonolog ist-will provide symbicort inhaler and short prednisone course [id number] ANGIE GUADALUPE MD Main Office [address] [facility] [address] [facility] [place] [address] 01/23/2025 14:55:22 01/23/2025 15:34:40 General examination of patient 573223837 Z00.00 Health Maintenanc e FemaleA) Patient was counseled on healthy diet, exercise and nutrition due to BMI of 29.9 B) ScreeningL ast Mammogram: start at age 50 stop at 74Date: 03/28/2024 esult: BIRADS-2Ne xt: 03/2025 Last Pap smear: start at age 21 to age 65Date: 09/23/2022R esults: negative for any atypical cells, HPV negativeNe xt: 5 years Last Colonoscop y: start at age 45-75Date: 05/20/2024 esult: hemorrhoid sNext: 10 years Last DEXA scan:Date: due at 64Result: ??? C) Vaccines:I nfluenza: refusedTdA P: orderedZos ter: 07/24/2023 , 01/02/2024 PSV23: 07/04/2022 PCV20: orderedCOV ID: 11/22/2020, 06/19/2021, 07/24/2023 D) Routine blood work orderedE) Updated patient's history RTC in one year for annual exam or sooner if any acute complaints Hyperlipidemia 05219359 E78.5 Z00.00 - ASCVD score of 4.2%- lipid panel 09/2024: cholestero l-228, triglyceri yunier-125, HDL-78 and LDL-128- ordered repeat levels Pt counselled on:- Eat a heart-heal thy [...] more fruits and veggies. Hypertensive disorder 38 856640 I10 - at goal- BP today manually was 122/73- pt is not complaint with taking amlodipine 5mg -> has blood pressure is currently under control to monitor for know, will not add back- pt is currently on candesarta n 32mg-HCTZ 12.5mg Pt counselled on:-Dietar y Approaches to Stop [...] ve trouble with your vision. Allergic rhinitis 983792 04 J30.9 - with associated asthma- c/w azelastine -flonase spray -> she gets this in [place] Anxiety 03205779 F41.9 - JAIME-7 score of 0- c/w bupropion ER 300mg QD- counsellin g provided Depressive disorder 3548 9007 F32.A - PHQ-9 score of 0- c/w bupropion ER 300mg QD- denies SI/HI- counsellin g provided Mild inter mittent asthma 428421777 J45.20 - c/w albuterol as needed- c/w symbicort 1 puff BID- c/w singular 10mg QD- meds refilled Prediabetes 984156279 R7 3.03 - HbA1c was 5.9 done in 09/2024- pt was started on metformin by previous PCP, she is not always compliant with this History of urinary tract infection 3584355996 107 Z87.440 - pt was seen by urology on 04/2024- was given ppx however pt not complaint with medication (methenami ne)- urology ordered imaging however patient was not able to have it done Screening for malignant neoplasm of breast 804352546 Z12.39 Administra tion of pneumococcal vaccine 65072992 Z23 Administra tion of diphtheria, pertussis, and tetanus vaccine 158512632 Z23 Vitamin D deficiency 347 31671 E55.9 Chronic low back pain 27 8345342 M54.50 G89.29 - chronic- pt also has neck pain and now thoracic area- c/w physiatry- refused physical therapy- currently on celecoxib as needed for the pain Health Concerns Section Related Observation LastModified by Organization Detai ls LastModified Time None Recorded Concern Status LastModified by Organization Details LastModified Time None Recorded Advance Directives Directive None Recorded Payers Insurance Date Sequence Insurance Name Policy Number Policy Grant Covered Member ID Grant Member ID Guarantor Name 10/02/2024 2 [place] [facility] Franklin Robles [id number] Franklin Robles 07/19/2023 1 [employer] (POS) [id number] Franklin Robles [id number] Franklin Robles 10/02/2024 1 [employer] - HEALTH NET PLAN (MEDICAID HMO) [id number] Franklin Robles [id number] Franklin Robles 01/25/2025 1 [place] [facility] (HMO) [id number] Franklin Robles [id number] Franklin Robles Notes Date Note Type Note Provider Name and Address Organization Details Recorded Time 04/28/2023 text/html Emergency Depart ment Follow-Up RecordReported [...] and a muscle relaxor she got in [place] (norflex). Pt does have some shortness of breath when the pain is severe. ANGIE GUADALUPE MD [address], [address], [facility] 04/30/2023 16:39:20 01/23/2024 text/html Musculoskeletal PainReported bypatient.Location:bi [...] has been going back and forth from [place] and [place] to receive care. Complaints: left sided breast [...] regularActivity: does not exercise ANGIE GUADALUPE MD [address] [facility] [address], [place], [address], [facility] 01/23/2024 10:26:57 07/01/2024 text/html Back PainReporte d [...] the medication daily. ANGIE GUADALUPE MD [address] [facility] [address], [place], [address], [facility] 07/01/2024 11:34:24 09/05/2024 text/html Franklin is a 59y r old F who presents for multiple concerns Vitamin D: has been taking vitamin D supplements provided by a provider in [place]. Pt requests a prescription of vitamin D. asthma: pt reports of worsening asthma since returning to the [facility]. When staying in [place], her asthma is not an issue as [...] pain in her hands/wrists. DEE RUSHING [address] [facility] [address], [place], [address], [facility] 09/05/2024 09:29:21 01/23/2025 text/html Franklin Robles is a 59 year old F who presented to the clinic for her annual exam. Pt has been going back and forth from [place] and [place] to receive care. Complaints: chronic back and wrist pain Is not using ASA.OTC/Herbal supplements use: none, sometimes vitamin d Gynecologic HistoryPatient's last menstrual period in menopause at 55Sexually active: yes with boyfriend/partnerCont raception: menopause+ fibroidsDenies cysts, stds, abnormal paps Obstetric HistoryGravida: 3Para: 3AB: 0LivinComplications: eclampsia, C/S Drug use: never userEtoh use: wine dialytobacco use: never userspf/derm: intermittently Dental: every 6 monthsEye: once a yearDiet: intermittent fastingActivity: does not exercise ANGIE GUADALUPE MD [address] [facility] [address], [place], [address], [facility] 01/23/2025 16:55:38 OBGyn Episode No OBEpisode recorded.
== END 2025-02-04 16:12 | disposition home or self-care (01) ==
LOC: HO.XRAY 16:11
PROVIDERS: PCP Student in an Organized Health Care Education/Training Program; Visit Provider Physician Assistant
DX: M54.41 Lumbago with sciatica, right side (principal); M79.641 Pain in right hand; M79.642 Pain in left hand
CPT/HCPCS: 72100; 73130

== ENCOUNTER → 2025-02-04 16:28 | Outpatient (BNV) | payer BC, SELFPAY | PROVIDERS: PCP Student in an Organized Health Care Education/Training Program; Visit Provider Radiology Diagnostic Radiology | DX: M51.360 Other intervertebral disc degeneration, lumbar region with discogenic back pain only (principal); M18.0 Bilateral primary osteoarthritis of first carpometacarpal joints | CPT/HCPCS: 72100; 73130 ==

== ENCOUNTER 2025-02-05 11:18 | Outpatient (REF) | payer BC, SELFPAY ==
[2025-02-05 11:59] LABS: Estimated Average Glucose 123 mg/dL; Hemoglobin A1c % 5.9 % (<6.0)
[2025-02-05 12:17] LABS: Appearance Urine Cloudy; Color Urine Yellow; Glucose Urine UA Negative (Negative); Leukocyte Esterase Urine Negative (Negative); Nitrite Urine Negative (Negative); Specific Gravity - Urine 1.025 (1.005-1.025); UMIC TRIGGER UACC YES; Urine Blood Small (1+) (Negative); Urine Ketones Trace mg/dL (Negative); Urine Protein Negative (Neg-Trace)
[2025-02-05 12:24] LABS: Bacteria Urine 2+ (None Seen); Hyaline Casts Urine 0-2 /LPF (0-2); Squamous Epithelial Cell Urine >20 /HPF (0-2); UACC Culture Trigger YES
[2025-02-05 12:30] LABS: Alanine Aminotransferase 88 U/L (0-31); Anion Gap 10 (12-20); Blood Urea Nitrogen 15 mg/dL (9-16); Calcium 10.1 mg/dL (8.4-10.2); Carbon Dioxide 25 mmol/L (22-29); Chloride 109 mmol/L (96-108); Cholesterol 207 mg/dL (<200); Estimated Glomerular Filt Rate > 60; Glucose Random 104 mg/dL (60-115); HDL Cholesterol 46 mg/dL (>40); LDL Cholesterol Calculated 143 mg/dL (<100); Potassium 3.8 mmol/L (3.3-5.1); Sodium 140 mmol/L (135-145); Triglycerides 91 mg/dL (<150)
[2025-02-05 13:08] LABS: Creatinine Urine 100.17 mg/dL; Microalbum/Creatinine Ratio Ur 12.9 ug/mg cr (<30)
== END 2025-02-05 11:19 | disposition home or self-care (01) ==
LOC: HO.LAB 11:18
PROVIDERS: PCP Student in an Organized Health Care Education/Training Program; Visit Provider Student in an Organized Health Care Education/Training Program
DX: Z00.00 Encounter for general adult medical examination without abnormal findings (principal); R73.03 Prediabetes; E55.9 Vitamin D deficiency, unspecified; Z87.440 Personal history of urinary (tract) infections
CPT/HCPCS: 36415; 80048; 80061; 81001; 82043; 82306; 82570; 83036; 84460; 87086

== ENCOUNTER → 2025-03-24 14:58 | Outpatient (REF) | payer BC, SELFPAY ==
--- OUTSIDE RECORDS SUMMARY | 2025-03-24 15:22 | XMS_ITS | Clinical Summary ---
Author Organization [facility] Address [address] [place] [address] Phone Care Team Providers Care Firmware Test Engineer Name Role Phone Angie Guadalupe MD Primary Care Provider Allergies Active Allergy Reactions Criticality Noted Date Comments Aspirin Angioedema 04/21/2023 swelling Crab Itching,Erythema Low 04/21/2023 Redness and itching Nsaids (Non-Steroidal Anti-Inflammatory Drug) Angioedema 04/21/2023 swelling Social History Tobacco Use Types Packs/Day Years Used Date Smoking Tobacco: Never Assessed Education Answer Date Recorded Are you interested in more education? Not on noble e 04/21/2023 Are you concerned about learning? Not on file 04/21/2023 No 04/21/2023 No 04/21/2023 Digital Access Answer Date Recorded No 04/21/2023 No 04/21/2023 Reliable internet access at home? Not on file 04/21/2023 Device with a working camera? Not on file Intimate Partner Violence Answer Date R ecorded Are you denied basic needs s uch as food, clothing, or medical care? No 04/21/2023 In the past 12 months have y ou been in a relationship with a person who hurts, threatens, or tries to control you? No 04/21/2023 Are you denied basic needs s uch as food, clothing, or medical care? No 04/21/2023 In the past 12 months have y ou been in a relationship with a person who hurts, threatens, or tries to control you? No 04/21/2023 Comments Unknown Sex and Gender Information Value Date Recorded Sex Assigned at Not on file Legal Sex Female 9:45 PM EDT Gender Identity Not on file Sexual Orientation Not on file Last Filed Vital Signs Vital Sign Reading Time Taken Comments Blood Pressure 122/78 04/22/2023 2:35 AM EDT Pulse 74 04/22/2023 2:35 AM EDT Temperature 36.9 C (98.4 F) 04/22/2023 2:35 AM EDT Respiratory Rate 18 04/22/2023 2:35 AM EDT Oxygen Saturation 99% 04/22/2023 2:35 AM EDT Inhaled Oxygen Concentration - - Weight 81.6 kg (180 lb) 04/21/2023 9:55 PM EDT Height 170.2 cm (5' 7 ) 04/21/2023 9:55 PM EDT Body Mass Index 28.19 04/21/2023 9:55 PM EDT Plan of Treatment Not on file Medical Devices Not on file Insurance [facility] [place] POS EPO [facility] E[facility] EPO [facility] POS EPO [employer] HMO POS EPO Care Teams Firmware Test Engineer Relationship Specialty Start Date End Date Angie Guadalupe MD [address] [address] PCP - General Family Medicine 04/21/23 Additional Source Comments The information contained in this document represents components of the legal health record. It is not the complete legal health record.[facility]
== END ==
LOC: HO.SL 14:58
PROVIDERS: PCP Student in an Organized Health Care Education/Training Program; Visit Provider Hospitalist
DX: G47.33 Obstructive sleep apnea (adult) (pediatric) (principal); R06.83 Snoring; R40.0 Somnolence
CPT/HCPCS: 95806

== ENCOUNTER → 2025-03-24 15:23 | Outpatient (BNV) | payer BC, SELFPAY | PROVIDERS: PCP Student in an Organized Health Care Education/Training Program; Visit Provider Internal Medicine | DX: G47.33 Obstructive sleep apnea (adult) (pediatric) (principal) | CPT/HCPCS: 95806 ==

== ENCOUNTER 2025-04-04 14:51 | Outpatient (REF) | payer BC, SELFPAY ==
--- OUTSIDE RECORDS SUMMARY | 2025-04-04 14:53 | XMS_ITS | Clinical Summary ---
Author Organization [facility] Address [address] [place] [address] Phone Care Team Providers Care Shower Maid Name Role Phone Angie Guadalupe MD Primary [...] file Medical Devices Not on file Insurance [facility] POS EPO [facility] POS EPO [employer] POS EPO Care Teams Shower Maid Relationship Specialty Start Date End Date Angie Guadalupe MD [address] [address] PCP - General Family Medicine 04/21/23 Additional Source Comments The information contained in this document represents components of the legal health record. It is not the complete legal health record.[facility]
--- NOTE | 2025-04-04 15:01 | PFT_ITS ---
Indication: Asthma Spirometry FEV1 to FVC 82%; FEV1 2.7 L; FVC 3.29 L. No significant response to bronchodilators noted. Lung Volumes Total lung capacity 92% predicted; residual volume 101% predicted; expiratory reserve volume 20% predicted Diffusion Capacity DLCO 84% predicted Comparisons None Interpretation No obstructive nor restrictive ventilatory defects identified. No significant response to bronchodilators noted. Lung volumes are normal except for decrease in the expiratory reserve volume which could be secondary to an elevated BMI. Diffusing capacity is within normal limits. If asthma is new differential methacholine challenge may be helpful in assessing for hyperreactive airways. Clinical correlation warranted. MTDD
[2025-04-04 15:42] VITALS: PULSE 75; O2SAT 98
== END 2025-04-04 14:52 | disposition home or self-care (01) ==
LOC: HO.RESP 14:51
PROVIDERS: PCP Student in an Organized Health Care Education/Training Program; Visit Provider Hospitalist
DX: J45.40 Moderate persistent asthma, uncomplicated (principal)
CPT/HCPCS: 94010; 94640; 94727; 94729

== ENCOUNTER → 2025-04-04 15:01 | Outpatient (BNV) | payer BC, SELFPAY | PROVIDERS: PCP Student in an Organized Health Care Education/Training Program; Visit Provider Hospitalist | DX: J45.909 Unspecified asthma, uncomplicated (principal) | CPT/HCPCS: 94060; 94727; 94729 ==

== ENCOUNTER 2025-04-08 15:42 | Outpatient (AMB) | payer BC, SELFPAY ==
[2025-04-08 15:45] VITALS: BP 128/76; PULSE 79; O2SAT 97; BMI 26.1
--- NOTE | 2025-04-08 15:45 | MHC.OFFVIS ---
Vital Signs 04/08/25 15:45 Height 5 ft 10 in Weight 181 lb 14.102 oz BMI 26.1 BP 128/76 Blood Pressure Location Lt brachial Position Sitting Pulse 79 Pulse Source Pulse Oximeter Pulse Oximetry (%) 97 Oxygen Delivery Method Room Air Intake Visit Reasons: Asthma Assistant Finance Manager Required: No Accompanied by: Self / Same As Patient Allergies aspirin Allergy (Intermediate, Verified 04/08/25 15:50) Facial Swelling NSAIDS (Non-Steroidal Anti-Inflamma Allergy (Intermediate, Verified 04/08/25 15:50) Facial Swelling HPI Comments Details: The patient is a 59 year woman with known history of lifelong allergies asthma chronic rhinitis presenting with worsening respiratory symptoms. Apparently as a child she started getting allergy shots at the age of 8. She had a lot of significant environmental allergies at that time. She was living in [place]. Later in her adolescent years she had multiple exacerbation with her asthma requiring hospitalizations and aminophylline along with steroids. Her asthma did improve and then she moved to the [facility]. Here she is now living in the [facility]. She has had increasing allergy symptoms. She had in her rescue inhaler and also had fluticasone for the nose. She is not getting as much relief. Typically she will do better with QNASL although it does not seem to be covered any longer. The patient was switched over to Symbicort and this appears to be more effective for her. She has not required any prednisone recently. She still uses Symbicort regularly since she does have regular symptoms. She has a hard time exercising because of the breathing. She also has significant nasal congestion. The nasal congestion has also resulted in worsening daytime drowsiness and snoring. Her [place] score is elevated elevated 24. Her bed partner does complain of her significant apneic episodes and he is concerned that she is going to have a bad outcome. The patient will need to have a sleep study. She has never had a sleep study this point. Therefore, will go ahead and continue her on the Symbicort and will add additional therapies for her nasal congestion. The patient should undergo additional blood work including allergy testing. She will also have formal pulmonary function studies and have her undergo a home sleep study and then she will follow-up after those tests are completed. 04/08/2025 the patient is here for pulmonary follow-up visit. Overall the patient has been doing okay. She continues have some issues with her allergies. She does have allergies to cats and also to dust mites. Her allergy testing was positive primarily for the dust mites. She does have carpal sent home. She should try to remove him as possible to help her respiratory symptoms. She still has a Symbicort. Her nasal sprays have been very effective both of the fluticasone and Astelin nasal spray. And she also rinses with a Neti bottle as needed. This seems to be effective for her. She continues to have some daytime drowsiness. In part she has did believe that she needs to lose weight. She did have a sleep study demonstrating mild sleep apnea. The patient should consider getting PAP therapy if she continues to have persistent daytime drowsiness or she develops worsening cardiovascular disease. For now she will try positional therapy and lifestyle changes. Will go ahead and follow-up in the springtime if she has any issues prior to this she will call for an earlier assessment. [facility] Medical History (Updated 04/08/25 @ 16:18 by Shola Mcdowell MD) Chronic allergic rhinitis Allergy Asthma Social History Alcohol intake: current Alcohol intake frequency: holidays/special occasions only Patient Tobacco Use Status: Former Tobacco user Review of Systems Const Reports daytime sleepiness, Denies fatigue, Denies fever(s), Reports snoring and Reports stops breathing during sleep Eyes Reports no additional complaints ENT Reports nasal congestion and Reports nasal discharge Card Denies chest pain Resp Reports cough, Reports snoring and Reports wheezing GI Reports no additional complaints Musc Reports no additional complaints Skin/Breast Denies rash Neuro Reports no additional complaints Endo Denies fatigue Bola/Lymph Reports no additional complaints Aller/Immun Reports wheezing Physical Exam Vital Signs: Last Vital Signs Pulse 79 04/08/25 15:45 BP 128/76 04/08/25 15:45 Pulse Ox 97 04/08/25 15:45 Oxygen Delivery Method Room Air 04/08/25 15:45 BMI result Body Mass Index 26.1 Const General: comfortable HEENT Head: Yes normocephalic Neck Neck: Yes supple Chest Chest palpation & inspection: normal inspection of the chest Resp Effort & Inspection: normal respiratory effort Auscultation: clear to auscultation bilaterally Cardio Heart sounds: S1 normal heart sound present and S2 normal heart sound present GI Palpation (GI): Soft to palpation Skin General skin exam: no rashes or lesions noted Extrem General: Yes no clubbing, cyanosis or edema Assessment & Plan Assessment & Plan (1) Chronic allergic rhinitis: Code(s): J30.9 - Allergic rhinitis, unspecified Category: Medical (2) Allergy: Code(s): T78.40XA - Allergy, unspecified, initial encounter Category: Medical Qualifiers: Encounter type: initial encounter Qualified Code(s): T78.40XA - Allergy, unspecified, initial encounter (3) Asthma: Code(s): J45.909 - Unspecified asthma, uncomplicated Category: Medical Qualifiers: Asthma complication type: uncomplicated Asthma persistence: persistent Asthma severity: moderate Qualified Code(s): J45.40 - Moderate persistent asthma, uncomplicated (4) LIV (obstructive sleep apnea): Comment: mild Code(s): G47.33 - Obstructive sleep apnea (adult) (pediatric) Category: Medical (5) Transaminitis: Code(s): R74.01 - Elevation of levels of liver transaminase levels Category: Medical Plan Continue Symbicort as needed JAVON as needed continue Fluticasone nasal spray continue Astelin nasal spray Neti bottle nasal rinse PM Avoidence to cats and dust mites positional sleep therapy. Consider PAP therapy if persistent daytime drowsiness or develops cardiovascular risk trial melatonin for sleep F/U 8 months Orders: Orders Liver Panel Today R74.01 - Elevation of levels of liver transaminase levels Medications: New melatonin 5 mg PO BEDTIME PRN 30 tabs 11RF sleep Changed From fluticasone propionate 50 mcg/actuation (Flonase Allergy Relief) administer into each nostril 1 spray intranasal DAILY PRN To fluticasone propionate 50 mcg/actuation (Flonase Allergy Relief) administer into each nostril 1 spray intranasal DAILY 16 grams 11RF From budesonide-formoterol 80-4.5 mcg/actuation (Symbicort) 1 inh inhalation BID To budesonide-formoterol 80-4.5 mcg/actuation (Symbicort) 2 inhalations inhalation BID 10.2 grams 12RF 30 days Refilled azelastine administer into each nostril 2 sprays intranasal BID 30 mL 11RF 30 days Coding Level of Care Code Est Pt Level 4 (36862) Complex EM visit Add On G2211 Diagnoses Chronic allergic rhinitis J30.9 Allergy, initial encounter T78.40XA Encounter type: initial encounter Moderate persistent asthma without complication J45.40 Asthma complication type: uncomplicated Asthma persistence: persistent Asthma severity: moderate LIV (obstructive sleep apnea) G47.33 Transaminitis R74.01 Time Spent (min) 18
--- OUTSIDE RECORDS SUMMARY | 2025-04-08 16:30 | XMS_ITS | Clinical Summary ---
Author Organization [facility] Address [address] [place] [phone] Phone Care Team Providers Care Cloth Desizing Range Tender Name Role Phone Angie Guadalupe MD Primary [...] file Medical Devices Not on file Insurance [facility] POS EPO [facility] POS EPO [facility] EPO [facility] EPO [facility] POS EPO [employer] POS EPO Care Teams Cloth Desizing Range Tender Relationship Specialty Start Date End Date Angie Guadalupe MD [address] [phone] PCP - General Family Medicine 04/21/23 Additional Source Comments The information contained in this document represents components of the legal health record. It is not the complete legal health record.[facility]
--- OUTSIDE RECORDS SUMMARY | 2025-04-08 16:31 | XMS_ITS | Encounter Summary ---
Author Organization [facility] Address [address] [place] [phone] Phone Care Team Providers Care Kettle Room Helper Name Role Phone Angie Guadalupe MD Primary Care Provider [phone] Encounter Details Date Type Department Care Team (Late st Contact Info) Description 04/22/2023 Procedure Pass [facility], Ct Scan - [facility] [address] [place] [address] Social History Tobacco Use Types Packs/Day Years [...] on file Sexual Orientation Not on file documented as of this encounter Plan of Treatment Not on file documented as of this encounter Visit Diagnoses Not on filedocumented in this encounter Care Teams Kettle Room Helper Relationship Specialty Start Date End Date Angie Guadalupe MD [address] [phone] PCP - General Family Medicine 04/21/23 documented as of this encounter Additional Source Comments The information contained in this document represents components of the legal health record. It is not the complete legal health record.[facility]
== END 2025-04-08 16:17 | disposition home or self-care (01) ==
LOC: HO.HPS 15:43
PROVIDERS: PCP Student in an Organized Health Care Education/Training Program; Visit Provider Hospitalist
DX: J30.9 Allergic rhinitis, unspecified (principal); T78.40XA Allergy, unspecified, initial encounter; J45.40 Moderate persistent asthma, uncomplicated; G47.33 Obstructive sleep apnea (adult) (pediatric); R74.01 Elevation of levels of liver transaminase levels
CPT/HCPCS: 99214

== ENCOUNTER 2025-04-23 10:54 | Outpatient (REF) | payer BC, SELFPAY ==
--- NOTE | ~2025-04-23 | XR_ITS ---
CLINICAL HISTORY: WITH FLEXION,EXTENSION, CERVICALGIA Exam: AP, lateral, flexion lateral, extension lateral, open-mouth odontoid, and bilateral oblique views of the cervical spine. Comparison: Thoracic spine radiographs from same day. Findings: Bony alignment is anatomic on the AP view. Neutral lateral view demonstrates straightening of the normal cervical lordosis. No abnormal motion seen on flexion or extension radiographs. [id number] multilevel degenerative disc disease and degenerative facet disease throughout the cervical spine. Bulky anterior osteophyte formation seen within the mid to lower cervical spine. No fracture or prevertebral soft tissue swelling. Oblique images demonstrate mild left foraminal narrowing at C3-4, C5-6, and C6-7. Impression: Degenerative changes as above without acute finding. Multilevel left neural foraminal narrowing. This document has been electronically signed by: Ramin Yates MD on 04/24/2025 09:52:59
--- NOTE | ~2025-04-23 | XR_ITS ---
CLINICAL HISTORY: PAIN --- Additional Notes or Special Instructions: WO Exam: AP, lateral, and swimmer's lateral view of the thoracic spine. Comparison: Lumbar spine radiographs from same day. Findings: Bony alignment of the thoracic vertebral bodies is anatomic. No fracture. Minor degenerative change. Impression: Minor degenerative change. This document has been electronically signed by: Ramin Yates MD on 04/24/2025 09:53:25
[2025-04-23 13:15] LABS: Albumin Level 4.7 g/dL (3.5-5.0); Alkaline Phosphatase 72 U/L (39-117); Aspartate Amino Transferase 40 U/L (5-31); Total Protein 7.5 g/dL (6.5-8.0)
--- OUTSIDE RECORDS SUMMARY | 2025-04-23 13:52 | XMS_ITS | Clinical Summary ---
Author Organization [facility] Address [address] [place] [phone] Phone Care Team Providers Care Mining Consultant Name Role Phone Angie Guadalupe MD Primary [...] Medical Devices Not on file Insurance [facility] POS EPO [facility] POS EPO [facility] EPO [facility] POS EPO [employer] POS EPO Care Teams Mining Consultant Relationship Specialty Start Date End Date Angie Guadalupe MD [address] [phone] PCP - General Family Medicine 04/21/23 Additional Source Comments The information contained in this document represents components of the legal health record. It is not the complete legal health record.[facility]
--- OUTSIDE RECORDS SUMMARY | 2025-04-23 13:52 | XMS_ITS | Encounter Summary ---
Author Organization [facility] Address [address] [place] [phone] Phone Care Team Providers Care Accuracy Expert Name Role Phone Angie Guadalupe MD Primary Care Provider Encounter Details Date Type Department Care Team (Late st Contact Info) Description 04/22/2023 Procedure Pass [facility], Ct Scan - [facility] [address] [place] [address] Social History Tobacco Use Types Packs/Day Years [...] on filedocumented in this encounter Care Teams Accuracy Expert Relationship Specialty Start Date End Date Angie Guadalupe MD [address] [phone] PCP - General Family Medicine 04/21/23 documented as of this encounter Additional Source Comments The information contained in this document represents components of the legal health record. It is not the complete legal health record.[facility]
[2025-04-23 13:55] LABS: Alanine Aminotransferase 62 U/L (0-31)
== END 2025-04-23 10:55 | disposition home or self-care (01) ==
LOC: HO.XRAY 10:54
PROVIDERS: Absent Provider Physical Medicine & Rehabilitation; PCP Student in an Organized Health Care Education/Training Program; Visit Provider Hospitalist
DX: R74.01 Elevation of levels of liver transaminase levels (principal); J45.909 Unspecified asthma, uncomplicated; T78.40XA Allergy, unspecified, initial encounter; M54.2 Cervicalgia
CPT/HCPCS: 36415; 72052; 72070; 80076; 82785

== ENCOUNTER → 2025-04-23 11:04 | Outpatient (BNV) | payer BC, SELFPAY | PROVIDERS: Absent Provider Physical Medicine & Rehabilitation; PCP Student in an Organized Health Care Education/Training Program; Visit Provider Radiology Diagnostic Radiology | DX: M50.30 Other cervical disc degeneration, unspecified cervical region (principal); M54.6 Pain in thoracic spine | CPT/HCPCS: 72052; 72070 ==